=== PATIENT | female | born 1990 | race Caucasian/White ===

== ENCOUNTER → 2020-12-04 12:08 | Outpatient (BNVA) | payer MEDICAID, SELFPAY | PROVIDERS: PCP Family Medicine; Visit Provider Surgery | DX: Z11.59 Encounter for screening for other viral diseases (principal); K52.9 Noninfective gastroenteritis and colitis, unspecified | CPT/HCPCS: 87635 ==

== ENCOUNTER 2020-12-08 07:41 | Outpatient (CLI) | payer MEDICAID, SELFPAY ==
--- NOTE | 2020-12-08 08:00 | US_ITS ---
WS: [id number] RIGHT UPPER QUADRANT ULTRASOUND HISTORY: R10.9 - Unspecified abdominal pain COMPARISON: 02/12/2017 Liver: 15.9 cm in length. Normal size liver. No bile duct dilatation or mass. Gallbladder: Normally distended gallbladder with no stones or wall thickening. CBD: 0.3 cm Pancreas: Normal size and echogenicity. Right kidney: 11.9 cm in length. Normal size and echogenicity. No hydronephrosis or mass. Aorta and IVC: Unremarkable abdominal aorta and IVC. No ascites. US/US gall bladder 51540 IMPRESSION: Normal RIGHT upper quadrant ultrasound.
== END 2020-12-08 07:42 | disposition home or self-care (01) ==
LOC: US 07:47
PROVIDERS: PCP Family Medicine; Visit Provider Surgery
DX: R10.9 Unspecified abdominal pain (principal)
CPT/HCPCS: 76705

== ENCOUNTER 2020-12-09 06:29 | Day surgery (SDC) | payer MEDICAID, SELFPAY ==
[2020-12-07 14:09] VITALS: BMI 20.7
[2020-12-09 06:43] VITALS: BP 109/78; PULSE 95; RESP 18; TEMP 36.8; O2SAT 98
[2020-12-09 06:46] LABS: OR HCG Qualitative Urine Negative (Negative)
[2020-12-09] MEDS: sodium chloride 0.9% 1,000 ML 30 ML IV (06:47)
--- NOTE | 2020-12-09 06:51 | W.PM.OPSUD ---
Surgery/Procedure H&P Update DATE OF PROCEDURE: December 09, 2020 DATE H&P PERFORMED: 11/23/20 H&P UPDATE INFORMATION: I have reviewed H&P completed within last 30 days, I have examined patient prior to procedure and No changes to prior documentation PREOP DIAGNOSIS: Chronic diarrhea PRIMARY INDICATION FOR PROCEDURE: The same PLANNED PROCEDURE: Operation Date: 12/09/20 07:30 Proposed Procedures p Colonoscopy 79617 K52.9(Not Applicable) - Joce Doherty MD
--- NOTE | 2020-12-09 07:08 | ANES.PREANE2 ---
Pre-Anesthetic Assessment Pre-Anesthetic Assessment: Height/Weight: Height 1.55 m Weight 49.895 kg Temp Pulse Resp BP Pulse Ox 98.2 F 95 18 109/78 98 12/09/20 06:43 12/09/20 06:43 12/09/20 06:43 12/09/20 06:43 12/09/20 06:43 Preop Diagnosis: Chronic diarrhea Proposed Procedure: Operation Date: 12/09/20 07:30 Proposed Procedures p Colonoscopy 56510 K52.9(Not Applicable) - Joce Doherty MD Familial anesthetic complications: None Was Beta Janie taken within 24 hours: N/A Last intake: Intake NPO > 8 hrs Last Liquid Date 12/08/20 Last Solid Date 12/07/20 Social: Social History: Tobacco Exam: Pre-Anes Outpt Exam: alert, oriented x 3, clear to auscultation bilaterally and regular rate & rhythm Airway: MP: 2 Dentition: Chipped (front top) Anesthetic Plan: ASA status: 1 Anesthesia: MAC Risk of > 500 ml blood loss (7ml/kg in children): No Meds/Allergies Current Medications: Current Medications Generic Name Dose Route Start Last Admin Trade Name Freq PRN Reason Stop Dose Admin Sodium Chloride 1,000 mls @ 30 ml s/hr 12/09/20 06:45 12/09/20 06:47 Sodium Chloride 0.9% IV 30 mls/hr .Q24H VIDYA Administration PFSH Anesthesia PFSH: Medical History Chronic diarrhea Family History Other Diabetes Hypertension Denies family history of Anesthesia complication Bleeding disorder Social History Smoking and tobacco status: current every day smoker cigarettes Second hand smoke exposure: No Alcohol intake: never Adopted: No Caregiver/support person: Yes Lives independently: Yes Household members: spouse and family Marital status: Pets and animals: No History of recent travel: No Sexually active: Yes Current gender identity: Female Angle/Mandaen: Confucianism Data Anesthesia Other Labs: Laboratory Results - last 48 hr 12/09/20 06:37 Urine HCG, Qual Negative Cardiac Studies: No Data to Display
[2020-12-09 08:01] VITALS: BP 83/54; PULSE 79; RESP 16; TEMP 36.1; O2SAT 97
[2020-12-09 08:10] VITALS: BP 89/54; PULSE 75; RESP 18; O2SAT 100
--- NOTE | 2020-12-09 08:17 | ANE.PACU2 ---
Inpatient post-anesthesia follow up: Airway intact: Yes Vital signs: Temperature 97 F Pulse Rate 75 Respiratory Rate 18 Blood Pressure 89/54 Pulse Oximetry 100 Oxygen Delivery Me thod Room Air Oxygen Flow Rate 2 Fraction of Inspir ed Oxygen Hydration adequate: Yes Nausea and vomiting: No Pain level: 1 Mental status: Baseline
[2020-12-09 08:22] VITALS: BP 98/61; PULSE 66; RESP 18; O2SAT 100
--- NOTE | 2020-12-09 18:32 | ANE.PACU2 ---
Inpatient post-anesthesia follow up: Airway intact: Yes Vital signs: Temperature 97 F Pulse Rate 66 Respiratory Rate 18 Blood Pressure 98/61 Pulse Oximetry 100 Oxygen Delivery Me thod Room Air Oxygen Flow Rate 2 Fraction of Inspir ed Oxygen Hydration adequate: Yes Nausea and vomiting: No Pain level: 1 Mental status: Baseline
== END 2020-12-09 08:26 | disposition home or self-care (01) ==
PROVIDERS: Anesthesiology; PCP Family Medicine; Visit Provider Surgery
PROC: 0DJD8ZZ Inspection of Lower Intestinal Tract, Via Natural or Artificial Opening Endoscopic (ICD-10-PCS; CPT 45378; principal; 2020-12-09 07:30)
DX: K52.9 Noninfective gastroenteritis and colitis, unspecified (principal); F17.210 Nicotine dependence, cigarettes, uncomplicated
CPT/HCPCS: 12345; 45378; 81025; 82274; 83630; 84703; 87493; 87506; J2704; J7030

== ENCOUNTER 2021-01-09 16:36 | Emergency (ER) | payer MEDICAID, SELFPAY ==
[2021-01-09 16:38] VITALS: BP 127/87; PULSE 100; RESP 16; TEMP 37.2; O2SAT 97; BMI 20.5
[2021-01-09 16:43] VITALS: BP 127/87; PULSE 100; RESP 16; TEMP 37.2; O2SAT 97
--- NOTE | 2021-01-09 17:13 | W.ED.GENADLT ---
HPI - General Adult General: Chief complaint: Headache Stated complaint: Sharp pain Rt side of head/jaw Time Seen by Provider: 01/09/21 16:54 Source: patient Mode of arrival: ambulatory Limitations: no limitations History of Present Illness: HPI narrative: Patient is a 30-year-old female who presents to ED today with a complaint of pain to the right side of her face. She states pain is been present over the past few days. Pain seems to be worse with eating/chewing. She is not having any ear pain or dental pain. She has not noticed any redness or swelling. She feels this is most likely her TMJ joint. She has never had problems with this previously. She states pain is fairly constant but worsens with movement. Onset (ago): day(s) Location: face Severity: mild Pain Consistency: constant Exacerbating factors: other (chewing/eating) Associated symptoms: Reports no associated symptoms; Deny chest pain, confusion, dyspnea, headache(s), nausea, rash or vomiting Review of Systems Const: Denies: fever(s), chills, body aches or fatigue Eyes: Denies: change in vision, blurry vision or photophobia ENMT: Denies: enlarged tonsils, odynophagia, dental pain, ear or mastoid pain or nasal congestion Card: Denies: chest pain Resp: Denies: dyspnea GI: Denies: nausea or vomiting Musc: Denies: neck pain or back pain Skin/Breast: Denies: rash Neuro: Denies: headache(s), numbness in extremities, weakness in extremities, sensory changes, dizziness, vertigo or confusion PFS ED PFSH: Medical History Chronic diarrhea Family History Other Diabetes Hypertension Denies family history of Anesthesia complication Bleeding disorder Social History Smoking and tobacco status: current every day smoker cigarettes Second hand smoke exposure: No Alcohol intake: never Adopted: No Caregiver/support person: Yes Lives independently: Yes Household members: spouse and family Marital status: Pets and animals: No History of recent travel: No Sexually active: Yes Current gender identity: Female Angle/Quaker: Caodaism Female Reproductive History: Date of last menstrual period: 12/21/20 Physical Exam Const: COMMON NORMALS: no acute distress, average body habitus, patient oriented x3, no limitations, healthy appearing, alert and well nourished HENMT: COMMON NORMALS: normocephalic, atraumatic, hearing grossly normal bilaterally, external ears normal, EAC's normal, TM's normal bilaterally, Normal external nose present, Normal nasal mucous membranes and turbinates present, moist oral mucous membranes and oropharynx normal HEAD & SCALP: normal to inspection, normocephalic and atraumatic FACE & SINUS: sinuses nontender NOSE: Normal external nose present, Normal nasal mucous membranes and turbinates present and Other nasal findings present (TTP R TMJ; mild clicking noted with opening/closing mandible ) EXTERNAL EAR: Yes external ears normal EXTERNAL AUDITORY CANAL: EAC's normal TYMPANIC MEMBRANE: TM's normal bilaterally MOUTH: Normal oral and palatal mucosa present, lip normal and tongue normal TEETH & GINGIVA: Yes poor dentition THROAT: posterior oropharynx normal, tonsils normal and uvula midline Neck/C-Spine: COMMON NORMALS: full ROM, no lymphadenopathy and no meningeal signs Neuro: COMMON NORMALS: patient oriented x3 SENSORIUM/ORIENTATION: Yes alert MENINGEAL SIGNS: Yes no meningeal signs Skin: COMMON NORMALS: no rashes or lesions noted GENERAL SKIN EXAM: no rashes or lesions noted Course Vital Signs: Vital signs: Vital Signs Temperature 99.0 F 01/09/21 17:24 Pulse Rate 94 01/09/21 17:24 Respiratory Rate 16 01/09/21 17:24 Blood Pressure 122/82 01/09/21 17:24 Pulse Oximetry 100 01/09/21 17:24 MDM - General Adult MDM Narrative: Medical decision making narrative: Discussed conservative management and avoidance of triggers. Will place on NSAIDS. Recommend followup with PCP in 2 weeks. Discharge Plan Discharge Patient Disposition: Home Clinical Impression: Temporomandibular joint pain Qualifiers: Laterality: right Qualified Code(s): M26.621 - Arthralgia of right temporomandibular joint Condition: Stable Prescriptions: New diclofenac sodium 50 mg tablet,delayed release (DR/EC) 50 mg PO Q12H PRN (Reason: pain) Qty: 20 RF: 0 No Action ferrous sulfate 324 mg (65 mg iron) tablet,delayed release (DR/EC) 324 mg PO BID RF: 0 Chantix 1 mg tablet 1 mg PO BID RF: 0 acetaminophen 500 mg Tablet 1,000 mg PO Q6H PRN (Reason: Pain) RF: 0 Discharge Orders: Discharge ED (Routine); Ordered 01/09/21 Ordered By: Eva Lux Referrals: Dash Velazquez MD [Primary Care Provider] - Patient Instructions: Opioid Safety Activity Restrictions/Additional Instructions: [facility] is committed to fighting the nationwide opiate epidemic. We are providing ALL patients with information regarding opiate safety. If you received opiate pain medication during your stay or if you received a prescription for opiate pain medication-please review this handout. If not, you may disregard. Thank you. Coding Level of Care Code ED Pvc Loader for David Gu
[2021-01-09 17:24] VITALS: BP 122/82; PULSE 94; RESP 16; TEMP 37.2; O2SAT 100
== END 2021-01-09 17:27 | disposition home or self-care (01) ==
PROVIDERS: Emergency Provider Physician Assistant; PCP Family Medicine
DX: M26.621 Arthralgia of right temporomandibular joint (principal); F17.210 Nicotine dependence, cigarettes, uncomplicated
CPT/HCPCS: 99282

== ENCOUNTER 2021-01-15 06:46 | Outpatient (CLI) | payer MEDICAID, SELFPAY ==
--- NOTE | 2021-01-15 07:03 | NM_ITS ---
WS: [id number] NUCLEAR MEDICINE HIDA SCAN CLINICAL INFORMATION: ABD PAIN TECHNIQUE: Following intravenous administration of mCi of technetium 99m mebrofenin, images of the ab domen were obtained over the course of 60 minutes. Next, gallbladder ejection fraction was determined by obtaining preprandial and one-hour postprandial images of the gallbladder following oral ingestio n of Ensure. COMPARISON: Ultrasound December 08, 2020 FINDINGS: Normal uptake at 5 minutes. Hepatomegaly. Normal hepatic excretion. Gallbladder is visualized by 15 m inutes. No evidence of acute cholecystitis. Normal common bile duct and small bowel activity. No evid ence of choledocholithiasis. Gallbladder ejection fraction 85% within normal limits. No evidence of chronic cholecystitis. NM/NM hepatobiliary w phar* [id number] IMPRESSION: 1. No evidence of acute or chronic cholecystitis. 2. Gallbladder ejection fraction 85% within normal limits. 3. Hepatomegaly.
== END 2021-01-15 06:47 | disposition home or self-care (01) ==
LOC: RAD 06:47
PROVIDERS: PCP Family Medicine; Visit Provider Surgery
DX: R10.9 Unspecified abdominal pain (principal); R16.0 Hepatomegaly, not elsewhere classified
CPT/HCPCS: 78227; A9537

== ENCOUNTER → 2021-02-11 12:27 | Outpatient (BNVA) | payer MEDICAID, SELFPAY | PROVIDERS: PCP Family Medicine; Visit Provider Surgery | DX: K82.8 Other specified diseases of gallbladder (principal) | CPT/HCPCS: 87635 ==

== ENCOUNTER 2021-02-16 06:53 | Day surgery (SDC) | payer MEDICAID, SELFPAY ==
[2021-02-15 09:19] VITALS: BMI 20.7
[2021-02-16] VITALS (11 sets, daily range): BP systolic 90–118; BP diastolic 55–77; PULSE 60–99; RESP 12–20; TEMP 36.4–36.5; O2SAT 95–100
[2021-02-16] MEDS: sodium chloride 0.9% 1,000 ML 30 ML IV (07:00)
--- NOTE | 2021-02-16 07:02 | W.PM.OPSUD ---
Surgery/Procedure H&P Update DATE OF PROCEDURE: February 16, 2021 DATE H&P PERFORMED: 01/27/21 H&P UPDATE INFORMATION: I have reviewed H&P completed within last 30 days, I have examined patient prior to procedure, No changes to prior documentation and Changes to prior documentation as noted here CHANGES TO PREVIOUS DOCUMENTATION: LFTs WNL PREOP DIAGNOSIS: Recurrent biliary colics PRIMARY INDICATION FOR PROCEDURE: THE SAME PLANNED PROCEDURE: Operation Date: 02/16/21 08:55 Proposed Procedures p Laparoscopic Cholecystectomy 00350 K82.8(Not Applicable) - Joce Doherty MD
--- NOTE | 2021-02-16 07:16 | P.ANESASSM_ITS ---
Pre-Anesthetic Assessment Pre-Anesthetic Assessment: Height/Weight: Height 1.55 m Weight 49.895 kg Temp Pulse Resp BP Pulse Ox 97.6 F 99 18 118/77 100 02/16/21 07:13 02/16/21 07:13 02/16/21 07:13 02/16/21 07:13 02/16/21 07:13 Preop Diagnosis: Recurrent biliary colics Proposed Procedure: Operation Date: 02/16/21 08:55 Proposed Procedures p Laparoscopic Cholecystectomy 66134 K82.8(Not Applicable) - Joce Doherty MD Familial anesthetic complications: None Was Beta Janie taken within 24 hours: N/A Was Clonidine taken within 24 hours: N/A Last intake: Intake Last Liquid Date 02/15/21 Last Liquid Time 20:30 Last Solid Date 02/15/21 Last Solid Time 19:00 Social: Social History: No alcohol and No tobacco Exam: Pre-Anes Outpt Exam: alert, oriented x 3, clear to auscultation bilaterally and regular rate & rhythm Airway: Cervical ROM: WNL MP: 2 Dentition: Chipped (front) Anesthetic Plan: ASA status: 1 Anesthesia: General Risk of > 500 ml blood loss (7ml/kg in children): No PFSH Anesthesia PFSH: Medical History Chronic diarrhea Family History Other Diabetes Hypertension Denies family history of Anesthesia complication Bleeding disorder Social History Smoking and tobacco status: current every day smoker cigarettes Second hand smoke exposure: No Alcohol intake: never Adopted: No Caregiver/support person: Yes Lives independently: Yes Household members: spouse and family Marital status: Pets and animals: No History of recent travel: No Sexually active: Yes Current gender identity: Female Angle/Confucianist: Confucianist Female Reproductive History: Date of last menstrual period: 12/21/20 Data Anesthesia Cardiac Studies: No Data to Display
[2021-02-16 07:31] LABS: Alanine Aminotransferase 18 U/L (0-33); Albumin Level 4.9 g/dL (3.5-5.2); Alkaline Phosphatase 49 IU/L (35-105); Globulin 3.1 g/dL (1.3-4.6); Total Bilirubin 0.3 mg/dL (0.15-1.2)
[2021-02-16 07:37] LABS: Aspartate Amino Transferase 31 U/L (0-32)
[2021-02-16] MEDS: clindamycin 600 MG/50 ML PREMIX 100 MG IV (07:42)
--- NOTE | 2021-02-16 08:16 | SUR.OPER ---
called family-went to voicemail-didn't leave message
[2021-02-16 08:28] LABS: OR HCG Qualitative Urine Negative (Negative)
--- NOTE | 2021-02-16 08:53 | SUR.OPER ---
called family with update, all questions answered
[2021-02-16] MEDS: lidocaine 2% INJ 20 mL INJECTION (08:59)
--- NOTE | 2021-02-16 09:04 | P.OP_ITS ---
Operative Report Date of procedure: February 16, 2021 Pre-op Diagnosis: Recurrent biliary colics Post-op Findings: Chronic cholecystitis Procedure Done: Laparoscopic cholecystectomy and excision of lymph node of Lundd Specimens removed/disposition: Lymph node of Lundd Gallbladder and contents Surgeon: Joce Doherty Direct Chill Caster: Surgical ayala Rutledge Circulating nurse Sravani Anesthesia: General (GET[employer] sustainability executive director Smart) Estimated blood loss (mL): 10 IV fluids (mL): 500 Condition: stable Disposition: same day Brief History: Recurrent biliary colic.Full H&P and informed consent per chart. Procedure: Patient was identified in the holding area and taken back to the operative suite, placed in supine position intubated by anesthesia . Time-out was done verifying the patient's name/date of /planned procedure and destination after the procedure, all were in agreement.SCDs confirmed to be functioning, preoperative antibiotics administered per protocol,and beta king protocol was confirmed. Patient was appropriately secured to the table, footboard was applied to the OR table, before prep and drape anesthesia was asked to tilt the table back and forth to make sure that the patient is appropriately secured and she was. Prep and drape of the abdomen was done under the usual sterile technique, followed by that supraumbilical skin incision,skin incision was done by a 15 blade knife, and stay sutures were applied to the fascia and Carroll trocar technique was used to enter the abdominal without injuring any abdominal viscera, started by low flow gas insufflation followed by a high flow, started with a 10 mm laparoscope and under direct vision there was no evidence of any injuries, the scope then switched to a 30? ,10 millimeter scope and under direct visualization 5 millimeter trocar was inserted in the epigastric region followed by two 5 mm trocars were inserted in the right upper quadrant that was done after injection of local lidocaine 2% at all incision sites. Gallbladder showed chronic cholecystitis with adhesions,liver ptosis is noticed. Patient was then positioned in the head up and tilted to the left Ratcheted forceps were introduced into the lateral most 5mm port and was applied unto the fundus of the gallbladder cephalad and using Bullet forceps the infundibulum of the gallbladder was retracted laterally. Patient was noticed to have a lot of omental adhesions that I had to take down under direct visualization using heat cauterization, there was some oozing and I elected to place an Endoloop Vicryl for appropriate hemostasis. Using [place] forceps then L-hook cautery to dissect the peritoneum overlying the Calot's triangle which was then opened medially and laterally until the cystic duct and the cystic artery were skeletonized.Dissection was carried along the body of the gallbladder and after ensuring critical view of safety was identfied. Cystic duct and cystic artery where seen connected to the gallbladder. Clips were applied on the cystic duct towards the common bile duct 1 towards the gallbladder then divided is in sharp scissors, 2 clips were then applied onto the cystic artery and 1 towards the gallbladder and divided by sharp scissors. Dissection was then carried along of the gallbladder from the gallbladder fossa using cautery as well as sharp dissection with heat energy. The gallbladder then was dissected out from the gallbladder fossa totally , cholecystectomy was then achieved and was placed in an Endo Catch bag and then retrieved from the Carroll trocar site under direct visualization using a 5 mm 30? scope through the epigastric trocar, specimen was then passed to the circulating nurse to go for permanent pathology,irrigation and hemostasis was done to the gallbladder fossa after hemostasis was secured, final survey laparoscopy was done that showed no injuries.Suction irrigation was obtained. The supraumbilical fascial defect was then closed using interrupted PDS and Vicryl sutures using a fascial closure device ;Tremaine Elizabeth under direct visualization Gas was allowed to deflate,Trocars were then taken out under direct vision there was no evidence of bleeding Specimen was passed to the circulating nurse for permanent pathology. No drains were placed and the supraumbilical incision as well as all trocar sites were closed by 3-0 Vicryl followed by 4-0 Monocryl to approximate the skin edges of the supraumbilical incision, dressing was applied in the form of surgical glue and the patient patient got extubated and was taken to recovery area in a stable condition. Count of sponges, needles and instruments were completed at the end of the procedure I was present for the whole entire procedure.
[2021-02-16] MEDS: midazolam 1 mg/mL INJ 2 mL IVP (09:15)
[2021-02-16] MEDS: ondansetron 2 mg/ML SDV 2 mL 4 MG IVP (10:50)
[2021-02-16] MEDS: HYDROcodone-acetaminophen 5-325 mg Tablet 1 TAB PO (11:52)
--- NOTE | 2021-02-16 19:03 | ANE.PACU2 ---
Inpatient post-anesthesia follow up: Airway intact: Yes Vital signs: Temperature 97.7 F Pulse Rate 70 Respiratory Rate 16 Blood Pressure 92/57 Pulse Oximetry 95 Oxygen Delivery Me thod Room Air Oxygen Flow Rate 6 Fraction of Inspir ed Oxygen Hydration adequate: Yes Nausea and vomiting: No Pain level: 2 Mental status: Baseline
== END 2021-02-16 11:50 | disposition home or self-care (01) ==
PROVIDERS: Anesthesiology; PCP Family Medicine; Visit Provider Surgery
PROC: 0FT44ZZ Resection of Gallbladder, Percutaneous Endoscopic Approach (ICD-10-PCS; CPT 47562; principal; 2021-02-16 08:45)
DX: K80.10 Calculus of gallbladder with chronic cholecystitis without obstruction (principal); F17.210 Nicotine dependence, cigarettes, uncomplicated
CPT/HCPCS: 47562; 80076; 81025; 84703; 88304; 88305; 96374; J1100; J2250; J2370; J2405; J2704; J3010; J3490; J7030

== ENCOUNTER 2021-04-26 12:06 | Emergency (ER) | payer MEDICAID, SELFPAY ==
[2021-04-26 12:16] VITALS: BP 106/71; PULSE 84; RESP 16; TEMP 36.5; O2SAT 97; BMI 18.8
[2021-04-26] MEDS: sodium chloride 0.9% 1,000 ML 999 ML IV (12:50)
[2021-04-26] MEDS: ondansetron 2 mg/ML SDV 2 mL 4 MG IVP (12:50)
--- NOTE | 2021-04-26 12:51 | ED_ITS ---
HPI - Abdominal Pain General: Chief Complaint: Abdominal Pain Stated Complaint: severe lower abd pain Time Seen by Provider: 04/26/21 12:37 History of Present Illness: HPI narrative: 30-year-old female was playing with her son at home last night and her they were essentially wrestling in the bed her son jumped up and landed on her abdomen, and periumbilical right upper quadrant she recently had a cholecystectomy claiming more severe pain this morning no vomiting no fever sweats chills dysuria urgency or frequency. MD elicited complaint: abdominal pain Onset (ago): hour(s) Pain Consistency: intermittent Location: Periumbilical and RUQ Quality: cramping Radiation: none Migration to: no migration Exacerbating factors: nothing Relieving factors: nothing Associated Symptoms: Reports poor appetite; Denies anorexia, belching, bloating, change in bowel habits, change in stool character, chills, coffee ground emesis, constipation, GI cramping, diarrhea, dyspepsia, dysuria, excessive flatus, fever(s), heartburn, hematochezia, hematuria, hematemesis, fecal incontinence, loose stools, melena, nausea, syncope and vomiting Related Data: Date of Last Menstrual Period: 04/21/21 Review of Systems Const: Denies: fever(s) or chills ENMT: Denies: throat pain, ear or mastoid pain, nasal discharge or nasal congestion Card: Denies: syncope Resp: Denies: dyspnea, productive cough or non-productive cough GI: Denies: nausea, vomiting, hematemesis, coffee ground emesis, heartburn, diarrhea, constipation, bloating, GI cramping, belching, excessive flatus, fecal incontinence, change in bowel habits, change in stool character, hematochezia or melena : Denies: dysuria or hematuria Skin/Breast: Denies: rash or pruritus PFSH ED PFSH: Medical History Biliary dyskinesia Chronic diarrhea Family History Other Diabetes Hypertension Denies family history of Anesthesia complication Bleeding disorder Social History Smoking and tobacco status: current every day smoker cigarettes Second hand smoke exposure: No Alcohol intake: never Adopted: No Caregiver/support person: Yes Lives independently: Yes Household members: spouse and family Marital status: Pets and animals: No History of recent travel: No Sexually active: Yes Current gender identity: Female Angle/Jehovah'S Witness: Faith Female Reproductive History: Date of last menstrual period: 04/21/21 Physical Exam Const: COMMON NORMALS: no acute distress GENERAL APPEARANCE: cooperative and comfortable ORIENTATION/CONSCIOUSNESS: Yes awake, Yes oriented to person, Yes oriented to place and Yes oriented to time HENMT: COMMON NORMALS: normocephalic, atraumatic and hearing grossly normal bilaterally HEAD & SCALP: normocephalic and atraumatic Neck/C-Spine: COMMON NORMALS: no JVD Resp: COMMON NORMALS: normal respiratory effort, No retractions, No use of accessory muscles and clear to auscultation bilaterally AUSCULTATION: clear to auscultation bilaterally Cardio: COMMON NORMALS: no JVD, regular rate, regular rhythm and No murmurs present (Cardio) RATE: regular rate RHYTHM: regular rhythm GI: COMMON NORMALS: No hepatosplenomegaly present AUSCULTATION: Yes normoactive bowel sounds PALPATION: Yes Tenderness to palpation present (GI) (Periumbilical no guarding or rebound), No Guarding due to palpation present (GI) and Yes No hepatosplenomegaly present Extremity: COMMON NORMALS: normal to inspection, capillary refill normal, no clubbing, cyanosis or edema, no calf tenderness and no pedal edema Neuro: SENSORIUM/ORIENTATION: Yes oriented to person, Yes oriented to place and Yes oriented to time Skin: COMMON NORMALS: no rashes or lesions noted GENERAL SKIN EXAM: no rashes or lesions noted Course Vital Signs: Vital signs: Vital Signs Temperature 97.7 F 04/26/21 12:16 Pulse Rate 95 04/26/21 13:09 Respiratory Rate 18 04/26/21 13:09 Blood Pressure 132/76 04/26/21 13:09 Pulse Oximetry 98 04/26/21 13:09 MDM - Abdominal Pain MDM Narrative: Medical decision making narrative: CT negative. Physical exam no evidence of acute abdomen. Reviewed with patient discharge home follow-up as needed Lab Data: Labs: Lab Results 04/26/21 04/26/21 04/26/21 Range/Units 12:50 12:50 12:50 WBC 6.7 (4.0-10.0) 10^3/ uL RBC 5.74 H (4.1-5.3) 10^6/u L Hgb 10.8 L (11.5-15.3) g/dL Hct 38.8 (37.0-47.0) % MCV 67.6 L (81-99) fL MCH 18.8 L (28.0-34.0) pg MCHC 27.8 L (30.0-36.0) g/dL RDW 20.5 H (12.1-15.1) % Plt Count 440 H (130-400) 10^3/c mm MPV 9.8 (7.4-10.4) fL Neut % (Auto) 55.8 % Lymph % (Auto) 35.9 % [place] % (Auto) 6.6 % Eos % (Auto) 0.7 % Baso % (Auto) 0.9 % Neut # (Auto) 3.72 (1.8-7.7) 10^3/u L Lymph # (Auto) 2.4 (0.8-4.8) 10^3/u L [place] # (Auto) 0.4 (0.2-0.9) 10^3/u L Eos # (Auto) 0.1 (0.0-0.8) 10^3/u L Baso # (Auto) 0.1 (0.0-0.1) 10^3/u L Nucleated RBC % (a uto) 0 % Nucleated RBCs # 0.0 /100WBC Sodium 136 (136-145) mmol/L Potassium 4.2 (3.5-5.1) mmol/L Chloride 99 (98-107) mmol/L Carbon Dioxide 21 L (22-29) mmol/L Anion Gap 20.2 H (5-19) BUN 7 (6-20) mg/dL Creatinine 0.4 L (0.5-0.9) mg/dL GFR Calculation 185.0 H (90-130) mL/min Glucose 79 (65-115) mg/dL Calculated Osmolal ity 279 L (285-295) mOsm/k g Calcium 9.2 (8.5-10.5) mg/dL Total Bilirubin 0.4 (0.15-1.2) mg/dL AST 28 (0-32) U/L ALT 24 (0-33) U/L Alkaline Phosphata se 68 (35-105) IU/L Total Protein 9.1 H (6.6-8.7) g/dL Albumin 5.8 H (3.5-5.2) g/dL Globulin 3.3 (1.3-4.6) g/dL Lipase 26 (13-60) U/L HCG, Qual Negative (Negative) Urine Color (Yellow) Urine Appearance (CLEAR) Urine pH (5-7) Ur Specific Gravit y (1.005-1.030) Urine Protein (Negative) Urine Glucose (UA) (Normal) Urine Ketones (Negative) Urine Blood (Negative) Urine Nitrate (Negative) Urine Bilirubin (Negative) Urine Urobilinogen (Negative) mg/dL Ur Leukocyte Linnea ase (Negative) 04/26/21 Range/Units 12:50 WBC (4.0-10.0) 10^3/ uL RBC (4.1-5.3) 10^6/u L Hgb (11.5-15.3) g/dL Hct (37.0-47.0) % MCV (81-99) fL MCH (28.0-34.0) pg MCHC (30.0-36.0) g/dL RDW (12.1-15.1) % Plt Count (130-400) 10^3/c mm MPV (7.4-10.4) fL Neut % (Auto) % Lymph % (Auto) % [place] % (Auto) % Eos % (Auto) % Baso % (Auto) % Neut # (Auto) (1.8-7.7) 10^3/u L Lymph # (Auto) (0.8-4.8) 10^3/u L [place] # (Auto) (0.2-0.9) 10^3/u L Eos # (Auto) (0.0-0.8) 10^3/u L Baso # (Auto) (0.0-0.1) 10^3/u L Nucleated RBC % (a uto) % Nucleated RBCs # /100WBC Sodium (136-145) mmol/L Potassium (3.5-5.1) mmol/L Chloride (98-107) mmol/L Carbon Dioxide (22-29) mmol/L Anion Gap (5-19) BUN (6-20) mg/dL Creatinine (0.5-0.9) mg/dL GFR Calculation (90-130) mL/min Glucose (65-115) mg/dL Calculated Osmolal ity (285-295) mOsm/k g Calcium (8.5-10.5) mg/dL Total Bilirubin (0.15-1.2) mg/dL AST (0-32) U/L ALT (0-33) U/L Alkaline Phosphata se (35-105) IU/L Total Protein (6.6-8.7) g/dL Albumin (3.5-5.2) g/dL Globulin (1.3-4.6) g/dL Lipase (13-60) U/L HCG, Qual (Negative) Urine Color Yellow (Yellow) Urine Appearance Clear (CLEAR) Urine pH 7 (5-7) Ur Specific Gravit y 1.010 (1.005-1.030) Urine Protein Neg (Negative) Urine Glucose (UA) Norm (Normal) Urine Ketones Negative (Negative) Urine Blood Neg (Negative) Urine Nitrate Negative (Negative) Urine Bilirubin Neg (Negative) Urine Urobilinogen Norm (Negative) mg/dL Ur Leukocyte Linnea ase Negative (Negative) Discharge Plan Discharge Patient Disposition: Home Clinical Impression: Abdominal wall pain Condition: Stable Prescriptions: No Action acetaminophen 500 mg Tablet 1,000 mg PO Q6H PRN (Reason: Pain) RF: 0 Adult Multivitamin Gummies 200 mcg Tablet,Chewable 1 tab PO DAILY RF: 0 Discharge Orders: Discharge ED (Routine); Ordered 04/26/21 Ordered By: Sergio Vivar Referrals: Dash Velazquez MD [Primary Care Provider] - Discharge Diet: Usual diet Discharge Activity: Increase activity as tolerated Patient Instructions: Opioid Safety Coding Level of Care Code ED Cafe Associate for David Gu
--- NOTE | 2021-04-26 12:55 | CT_ITS ---
WS: [id number] CT ABDOMEN AND PELVIS WITH CONTRAST HISTORY: abd pain TECHNIQUE: Imaging performed of the abdomen and pelvis with IV contrast. Single phase imaging of the abdomen. Coronal and sagittal reformats are submitted. All CT scans at [facility] use at least one of these dose optimization techniques: automated exposure control; mA and/or kV adjustment per patient size (includes targeted exams where dose is matched to clinical indication); or iterativ e reconstruction. IV CONTRAST: Omnipaque 300; 75 mL IV. Oral contrast: No DLP: 653.18 mGy.cm COMPARISON: 01/20/2014 Lower thorax: Benign granuloma RIGHT lower lobe. Heart is normal size. No hiatal hernia. Liver/biliary system: Normal size with no intrahepatic dilatation. Gallbladder: Status post cholecystectomy. Pancreas: Normal size pancreas and pancreatic duct. No adjacent inflammation. Spleen: Normal size with a few granulomata. Adrenal glands: Normal. Right kidney: Normal. Left kidney: Normal. Aorta: Normal. Lymphadenopathy: None. Free fluid: There is a small amount of free fluid in the cul-de-sac. GI tract: Moderate fecal retention and constipation. The appendix is visualized is normal. Abdominal wall: Unremarkable abdominal wall. No hernia. Pelvis: Anteverted uterus. Coarse calcifications in the anterior myometrium consistent with fibroids. Fluid distended endometrium at 14 mm. RIGHT ovarian cyst measures 2.7 cm. Bones: Unremarkable. CT/CT abdomen pelvis w con* [id number] IMPRESSION: 1. Prior cholecystectomy. 2. No free air or visceral organ injury identified. 3. Moderate constipation. 4. Small amount of physiologic free fluid in the cul-de-sac. 5. Fibroid uterus.
[2021-04-26] MEDS: iohexol 300 mg/mL 100 mL Btl IV (13:04)
[2021-04-26 13:05] LABS: Add Urine Microscopic? NO; Charge for UA Resulting for Rev
[2021-04-26 13:09] VITALS: BP 132/76; PULSE 95; RESP 18; O2SAT 98
[2021-04-26 13:10] LABS: Basophils # 0.1 10^3/uL (0.0-0.1); Basophils % 0.9 %; Eosinophils # 0.1 10^3/uL (0.0-0.8); Eosinophils % 0.7 %; Hematocrit 38.8 % (37.0-47.0); Hemoglobin 10.8 g/dL (11.5-15.3); Lymphocytes # 2.4 10^3/uL (0.8-4.8); Lymphocytes % 35.9 %; Mean Corpuscular HGB Conc 27.8 g/dL (30.0-36.0); Mean Corpuscular Hemoglobin 18.8 pg (28.0-34.0); Mean Corpuscular Volume 67.6 fL (81-99); Mean Platelet Volume 9.8 fL (7.4-10.4); Monocytes # 0.4 10^3/uL (0.2-0.9); Monocytes % 6.6 %; Neutrophils # 3.72 10^3/uL (1.8-7.7); Neutrophils % 55.8 %; Nucleated Red Blood Cells % 0 %; Platelet Count 440 10^3/cmm (130-400); Red Blood Count 5.74 10^6/uL (4.1-5.3); Red Cell Distribution Width 20.5 % (12.1-15.1); White Blood Count 6.7 10^3/uL (4.0-10.0)
[2021-04-26 13:18] LABS: Bilirubin Urine Neg (Negative); Blood Urine Neg (Negative); Glucose Urine UA Norm (Normal); Ketones Urine Negative (Negative); Leukocyte Esterase Urine Negative (Negative); Nitrate Urine Negative (Negative); Protein Urine Neg (Negative); Urine Appearance Clear (CLEAR); Urine Color Yellow (Yellow); Urobilinogen Urine Norm (Negative); pH Urine 7 (5-7)
[2021-04-26 13:26] LABS: HCG, Serum Qual Negative (Negative)
[2021-04-26 13:28] LABS: Alanine Aminotransferase 24 U/L (0-33); Albumin Level 5.8 g/dL (3.5-5.2); Alkaline Phosphatase 68 IU/L (35-105); Anion Gap 20.2 (5-19); Aspartate Amino Transferase 28 U/L (0-32); Blood Urea Nitrogen 7 mg/dL (6-20); Calcium 9.2 mg/dL (8.5-10.5); Carbon Dioxide 21 mmol/L (22-29); Chloride 99 mmol/L (98-107); Globulin 3.3 g/dL (1.3-4.6); Glucose 79 mg/dL (65-115); Lipase 26 U/L (13-60); Osmolality Calculated 279 mOsm/kg (285-295); Potassium 4.2 mmol/L (3.5-5.1); Sodium 136 mmol/L (136-145); Total Bilirubin 0.4 mg/dL (0.15-1.2); Total Protein 9.1 g/dL (6.6-8.7)
[2021-04-26 13:32] LABS: Creatinine Clr Calc Pharmacy 149.2502
[2021-04-26 13:40] VITALS: BP 132/76; PULSE 95; RESP 18; O2SAT 98
[2021-04-26 13:43] VITALS: BP 108/67; PULSE 68; RESP 17; TEMP 36.8
== END 2021-04-26 13:44 | disposition home or self-care (01) ==
PROVIDERS: Emergency Provider Family Medicine; PCP Family Medicine
DX: R10.9 Unspecified abdominal pain (principal); F17.210 Nicotine dependence, cigarettes, uncomplicated
CPT/HCPCS: 74177; 80053; 81003; 83690; 84703; 85025; 96361; 96374; 99283; J2405; J7030; Q9967

== ENCOUNTER → 2021-07-23 12:26 | Outpatient (BNVA) | payer MEDICAID, SELFPAY | PROVIDERS: PCP Family Medicine; Visit Provider Surgery | DX: Z20.822 Contact with and (suspected) exposure to COVID-19 (principal); Z12.11 Encounter for screening for malignant neoplasm of colon | CPT/HCPCS: 87635 ==

== ENCOUNTER 2021-07-28 07:29 | Day surgery (SDC) | payer MEDICAID, SELFPAY ==
[2021-07-21 15:50] VITALS: BMI 19.1
--- NOTE | 2021-07-28 07:41 | P.ANESASSM_ITS ---
Pre-Anesthetic Assessment Pre-Anesthetic Assessment: Height/Weight: Height 1.55 m Weight 45.813 kg Preop Diagnosis: Recurrent biliary colics Proposed Procedure: Operation Date: 07/28/21 08:45 Proposed Procedures p EGD 37682 R10.9(Not Applicable) - Joce Doherty MD Familial anesthetic complications: None Was Beta Janie taken within 24 hours: N/A Was Clonidine taken within 24 hours: N/A Last intake: > 8 hrs Social: Social History: Tobacco and No alcohol Exam: Pre-Anes Outpt Exam: alert, oriented x 3, clear to auscultation bilaterally and regular rate & rhythm Airway: MP: 2 Dentition: Chipped (front) Anesthetic Plan: ASA status: 1 Anesthesia: MAC Risk of > 500 ml blood loss (7ml/kg in children): No PFSH Anesthesia PFSH: Medical History Biliary dyskinesia Chronic diarrhea Family History Other Diabetes Hypertension Denies family history of Anesthesia complication Bleeding disorder Social History Smoking and tobacco status: current every day smoker cigarettes Second hand smoke exposure: No Alcohol intake: never Adopted: No Caregiver/support person: Yes Lives independently: Yes Household members: spouse and family Marital status: Pets and animals: No History of recent travel: No Sexually active: Yes Current gender identity: Female Angle/Bahai: Scientology Female Reproductive History: Date of last menstrual period: 04/21/21 Data Anesthesia Cardiac Studies: No Data to Display
[2021-07-28 08:01] VITALS: BP 104/72; PULSE 78; RESP 18; TEMP 36.4; O2SAT 100
[2021-07-28] MEDS: sodium chloride 0.9% 1,000 ML 30 ML IV (08:17)
[2021-07-28 08:23] LABS: OR HCG Qualitative Urine Negative (Negative)
--- NOTE | 2021-07-28 08:43 | P.HP_ITS ---
Same Day Surgery H&P Indication for Procedure/HPI DATE OF PROCEDURE: July 28, 2021 CHIEF COMPLAINT/INDICATIONFOR SURGICAL PROCEDURE: My jeyson love PREOP DIAGNOSIS: Abdominal pain PLANNED PROCEDRUE: Operation Date: 07/28/21 08:45 Proposed Procedures p EGD 18751 R10.9(Not Applicable) - Joce Doherty MD Patient comes today and she is well-known to me from previous clinical encounters with history of abdominal pain and diarrhea. Undergone a colonoscopy back in November 2020 that showed normal findings. Followed by laparoscopic cholecystectomy in January 2021 and pathology at that time showed chronic cholecystitis. Patient initially felt better yet over time she continues to demonstrate sharp abdominal pain to any kind of food associated with change in bowel habits slightly loose nonbloody. Also reports history of chronic anxiety. Patient is referred to me for further evaluation and potential intervention Interim history 07/28/2021 Patient comes today for diagnostic EGD ROS All systems have been reviewed negative except as per the above or per problem list Medications/Allergies* Home Medications Medication Instructions Recorded Confirmed Type acetaminophen 1,000 mg PO Q6H PRN 12/07/20 07/28/21 History multivit with min-folic acid 1 tab PO DAILY 04/26/21 07/28/21 History [Adult Multivitamin Gummies] Allergies/Adverse Reactions Allergy/AdvReac Type Severity Reaction Status Date / Time Penicillins Allergy ALGY-Rash Verified 07/28/21 08:46 Current Medications: Generic Name Dose Route Start Last Admin Trade Name Freq PRN Reason Stop Dose Admin Sodium Chloride 1,000 mls @ 30 mls/hr 07/28/21 08:00 07/28/21 08:17 Sodium Chloride 0.9% IV 07/29/21 07:59 30 mls/hr .Q24H VIDYA Administration Pertinent History/Comorbid Conditions* Medical History (Updated 06/11/21 @ 16:36 by Joce Doherty MD) Biliary dyskinesia Chronic diarrhea Family History (Updated 11/23/20 @ 09:23 by Betty Burk RN) Diabetes Hypertension Denies family history of Anesthesia complication Bleeding disorder Social History Smoking and tobacco status: current every day smoker cigarettes Second hand smoke exposure: No Alcohol intake: never Adopted: No Caregiver/support person: Yes Lives independently: Yes Household members: spouse and family Marital status: Pets and animals: No History of recent travel: No Sexually active: Yes Current gender identity: Female Angle/Nondenominational: Sabianism Pertinent Exam Findings alert, oriented x 3, clear to auscultation bilaterally, regular rate & rhythm and procedure specific exam findings (Abdominal examination nontender nondiste nded soft) Recommendations Surgery/Procedure today (EGD with possible biopsy) Other Plans: Plan of care; After thorough history and physical examination and reviewing the chart, plan to perform a diagnostic esophagogastroduodenoscopy with possible biopsy in the GI lab. I discussed with the patient in detail the risk,benefits,alternatives and indications.The risk of aspiration, bleeding, soft tissue injury, perforation of the stomach/esophagus and other potential concomitant complications were explained to the patient in details,aslo the potential need for Thoracic and or Abdominal surgery to repair any complications.The patient understood this well and did agree to proceed. Rationale was carefully and clearly discussed with the patient.Appropriate informed consent have been reviewed and signed All questions have been answered and all concerns have been addressed to patient's satisfaction. Coding Level of Care Code Acute Superintendent Power for David Gu
[2021-07-28 09:03] VITALS: BP 93/56; PULSE 68; RESP 14; TEMP 36.3; O2SAT 94
[2021-07-28 09:13] VITALS: BP 114/82; PULSE 77; RESP 18; TEMP 36.3; O2SAT 99
--- NOTE | 2021-07-28 13:56 | ANE.PACU2 ---
Inpatient post-anesthesia follow up: Airway intact: Yes Vital signs: Temperature 97.3 F Pulse Rate 77 Respiratory Rate 18 Blood Pressure 114/82 Pulse Oximetry 99 Oxygen Delivery Me thod Room Air Oxygen Flow Rate 4 Fraction of Inspir ed Oxygen Hydration adequate: Yes Nausea and vomiting: No Pain level: 2 Mental status: Baseline
[2021-07-29 13:41] LABS: H. Pylori / CLO Test Negative
== END 2021-07-28 09:35 | disposition home or self-care (01) ==
PROVIDERS: Anesthesiology; PCP Family Medicine; Visit Provider Surgery
PROC: 0DJ08ZZ Inspection of Upper Intestinal Tract, Via Natural or Artificial Opening Endoscopic (ICD-10-PCS; CPT 43235; principal; 2021-07-28 08:45)
DX: R10.9 Unspecified abdominal pain (principal); K29.70 Gastritis, unspecified, without bleeding; F17.210 Nicotine dependence, cigarettes, uncomplicated
CPT/HCPCS: 43239; 81025; 84703; 87077; 88305; 96360; J2704; J7030

== ENCOUNTER 2021-08-30 08:57 | Outpatient (CLI) | payer MEDICAID, SELFPAY ==
--- NOTE | 2021-08-30 09:15 | FL_ITS ---
WS: [id number] SMALL BOWEL EXAMINATION CLINICAL INFORMATION: R19.7 - Diarrhea, unspecified COMPARISON: None. FINDINGS: Cholecystectomy clips. Contrast material: 50/50 thin barium sulfate suspension. Transit time: 80 Minutes (normal = 30 - 240 minutes) Normal small bowel. No small bowel stricture, dilatation, or obstructing mass. Duodenum and jejunum a ppear normal. The ileum and terminal ileum appear normal. Normal ileocecal valve. FLUOROSCOPY TIME: 0.6 minutes FL/FL small bowel series* [id number] IMPRESSION: Normal small bowel study with normal transit time.
== END 2021-08-30 08:58 | disposition home or self-care (01) ==
PROVIDERS: PCP Family Medicine; Visit Provider Surgery
DX: R19.7 Diarrhea, unspecified (principal)
CPT/HCPCS: 74250

== ENCOUNTER 2022-03-13 04:44 | Observation (INO) | payer MEDICAID, SELFPAY ==
[2022-03-13] VITALS (23 sets, daily range): BP systolic 90–107; BP diastolic 52–71; PULSE 74–112; RESP 15–21; TEMP 36.7–37.6; O2SAT 95–100; BMI 18.5
--- NOTE | 2022-03-13 05:13 | W.ED.GENADLT ---
Documented by User: Gianfranco Richardson DO 03/13/22 18:23 HPI - General Adult General: Chief complaint: General Medical Stated complaint: hip pains down the legs Time Seen by Provider: 03/13/22 05:05 Source: patient History of Present Illness: 31-year-old female presenting with bilateral hip pain Onset (ago): hour(s) Location: lower extremity Severity: moderate Pain Consistency: constant Associated symptoms: Reports fevers/chills and nausea; Deny chest pain, cough, dyspnea, headache(s), rash, short of breath or vomiting Review of Systems Const: Reports: fever(s), chills and body aches (hips only) Card: Denies: chest pain Resp: Denies: dyspnea, productive cough or non-productive cough GI: Reports: nausea; Denies: abdominal pain or vomiting : Denies: flank pain, difficulty voiding or dysuria Skin/Breast: Denies: rash Neuro: Denies: headache(s) Psych: Reports: anxiety PFSH ED PFSH: Medical History Abdominal pain Biliary dyskinesia Chronic diarrhea Gastritis Family History Other Diabetes Hypertension Denies family history of Anesthesia complication Bleeding disorder Social History Smoking and tobacco status: current every day smoker cigarettes Second hand smoke exposure: No Alcohol intake: never Adopted: No Caregiver/support person: Yes Lives independently: Yes Household members: spouse and family Marital status: Pets and animals: No History of recent travel: No Sexually active: Yes Current gender identity: Female Angle/Zoroastrian: Mormonism Female Reproductive History: Date of last menstrual period: 04/21/21 Physical Exam Const: GENERAL APPEARANCE: cooperative and ill appearing (mildly) HENMT: COMMON NORMALS: normocephalic, atraumatic and Normal external nose present HEAD & SCALP: normocephalic and atraumatic FACE & SINUS: normal facial exam and face symmetric NOSE: Normal external nose present Eye: COMMON NORMALS: Equal, round and reactive pupils present and EOMs intact bilaterally PUPIL: Yes Equal, round and reactive pupils present Chest: COMMONS NORMALS: normal inspection of the chest Resp: COMMON NORMALS: normal respiratory effort, No use of accessory muscles and clear to auscultation bilaterally AUSCULTATION: clear to auscultation bilaterally Cardio: COMMON NORMALS: regular rhythm RATE: tachycardic RHYTHM: regular rhythm GI: COMMON NORMALS: Normal to inspection, nondistended, normoactive bowel sounds present, Soft to palpation and non-tender PALPATION: Yes Soft to palpation Back/Pelvis: OTHER: Examination of the hips bilaterally reveals diffuse tenderness. There is pain with internal and external rotation passively. Range of motion is normal. Neuro: JAD COMA SCALE: document GCS findings Jad coma scale eye opening: Spontaneous Jad coma scale verbal response: Orientated Jad coma scale motor response: Obey commands [place] coma scale total score: 15 Course Vital Signs: Vital signs: Vital Signs Temperature 99.7 F H 03/13/22 17:35 Pulse Rate 77 03/13/22 17:35 Respiratory Rate 18 03/13/22 17:35 Blood Pressure 96/59 03/13/22 17:35 Pulse Oximetry 100 03/13/22 17:35 [facility] - General Adult Medical Decision Making 31-year-old female presenting with right greater than left-sided anterior and posterior hip pain radiating down the leg. She ran a temperature at home as well. She notes that it was 101 at the time. She took Tylenol. Its 99.2 here. Her flu swabs are negative. X-ray of the pelvis is negative she does have some pain with range of motion. Laboratory is pending as well as urine. She will be checked out to Dr. Easley at shift change. Lab Data : 03/13/22 06:30 03/13/22 06:30 Radiology Impressions Pelvis X-Ray 03/13/22 05:25 IMPRESSION: No acute findings. Laboratory Results WBC 4.7 10^3/uL (4.0-10.0) 03/13/22 06:30 RBC 3.18 10^6/uL (4.1-5.3) L 03/13/22 06:30 Hgb 6.1 g/dL (11.5-15.3) L* 03/13/22 06:30 Hct 21.6 % (37.0-47.0) L 03/13/22 06:30 MCV 67.9 fl (81-99) L 03/13/22 06:30 MCH 19.2 pg (28.0-34.0) L 03/13/22 06:30 MCHC 28.2 g/dL (30.0-36.0) L 03/13/22 06:30 RDW 19.2 % (12.1-15.1) H 03/13/22 06:30 Plt Count 207 10^3/cmm (130-400) 03/13/22 06:30 MPV 10.0 fL (7.4-10.4) 03/13/22 06:30 Neut % (Auto) 88.0 % 03/13/22 06:30 Lymph % (Auto) 3.6 % 03/13/22 06:30 [place] % (Auto) 7.6 % 03/13/22 06:30 Eos % (Auto) 0.2 % 03/13/22 06:30 Baso % (Auto) 0.2 % 03/13/22 06:30 Neut # (Auto) 4.14 10^3/uL (1.8-7.7) 03/13/22 06:30 Lymph # (Auto) 0.2 10^3/uL (0.8-4.8) L 03/13/22 06:30 [place] # (Auto) 0.4 10^3/uL (0.2-0.9) 03/13/22 06:30 Eos # (Auto) 0.0 10^3/uL (0.0-0.8) 03/13/22 06:30 Baso # (Auto) 0.0 10^3/uL (0.0-0.1) 03/13/22 06:30 Nucleated RBC % (auto) 0 % 03/13/22 06:30 Nucleated RBCs # 0.0 /100WBC 03/13/22 06:30 Sodium 139 mmol/L (136-145) 03/13/22 06:30 Potassium 3.6 mmol/L (3.5-5.1) 03/13/22 06:30 Chloride 109 mmol/L (98-107) H 03/13/22 06:30 Carbon Dioxide 19 mmol/L (22-29) L 03/13/22 06:30 Anion Gap 14.6 (5-19) 03/13/22 06:30 BUN 7 mg/dL (6-20) 03/13/22 06:30 Creatinine 0.5 mg/dL (0.5-0.9) 03/13/22 06:30 GFR Calculation 142.1 mL/min (90-130) H 03/13/22 06:30 Glucose 92 mg/dL (65-115) 03/13/22 06:30 Calculated Osmolality 286 mOsm/kg (285-295) 03/13/22 06:30 Calcium 7.5 mg/dL (8.5-10.5) L 03/13/22 06:30 Iron 11 ug/dL (37-145) L 03/13/22 06:30 TIBC 396 mcg/dl 03/13/22 06:30 % Saturation 2.7 % (20-50) L 03/13/22 06:30 Unsat Iron Binding 385 ug/dL (112-347) H 03/13/22 06:30 Transferrin 338 mg/dL (200-360) 03/13/22 06:30 Ferritin 5 ng/mL (15-150) L 03/13/22 06:30 Total Bilirubin 0.2 mg/dL (0.15-1.2) 03/13/22 06:30 AST 22 U/L (0-32) 03/13/22 06:30 ALT 18 U/L (0-33) 03/13/22 06:30 Alkaline Phosphatase 40 IU/L (35-105) 03/13/22 06:30 Creatine Kinase 28 U/L (26-192) 03/13/22 06:30 C-Reactive Protein 3.1 mg/L (0.0-4.9) 03/13/22 06:30 Total Protein 6.1 g/dL (6.6-8.7) L 03/13/22 06:30 Albumin 4.2 g/dL (3.5-5.2) 03/13/22 06:30 Globulin 1.9 g/dL (1.3-4.6) 03/13/22 06:30 Vitamin B12 480 pg/mL (232-1245) 03/13/22 06:30 Folate 12.2 ng/mL (4.8-37.3) 03/13/22 06:30 TSH 0.56 uIU/mL (0.27-4.20) 03/13/22 06:30 HCG, Qual Negative (Negative) 03/13/22 06:30 Urine Color Yellow (Yellow) 03/13/22 06:28 Urine Appearance Clear (CLEAR) 03/13/22 06:28 Urine pH 5 (5-7) 03/13/22 06:28 Ur Specific [place] 1.020 (1.005-1.030) 03/13/22 06:28 Urine Protein Neg (Negative) 03/13/22 06:28 Urine Glucose (UA) Norm (Normal) 03/13/22 06:28 Urine Ketones Negative (Negative) 03/13/22 06:28 Urine Blood Neg (Negative) 03/13/22 06:28 Urine Nitrate Negative (Negative) 03/13/22 06:28 Urine Bilirubin Neg (Negative) 03/13/22 06:28 Urine Urobilinogen Norm mg/dL (Negative) 03/13/22 06:28 Ur Leukocyte Esterase Negative (Negative) 03/13/22 06:28 Influenza Type A Ag Negative (Negative) 03/13/22 05:35 Influenza Type B Ag Negative (Negative) 03/13/22 05:35 Blood Type A Positive 03/13/22 08:04 Rho(D) Type Positive 03/13/22 08:04 Antibody Screen Negative 03/13/22 08:04 Crossmatch See Detail 03/13/22 08:04 Discharge Plan Discharge Patient Disposition: Admitted As Inpatient Admit Provider: Chavez Schmid Clinical Impression: Anemia, Acute hip pain Condition: Stable Sign Out Sign Out Data: Patient Sign Out occurred on 03/13/22 at 06:45. Patient's care was discussed, and care was transferred from to Roger Easley DO. Coding Level of Care Code ED [employer] Certified Internetwork Expert for Chg Fwd Exam Comprehensive Documented by User: Roger Easley DO 03/13/22 08:25 HPI - General Adult General: Chief complaint: General Medical Stated complaint: hip pains down the legs Time Seen by Provider: 03/13/22 05:05 [facility] ED PFSH: Medical History Abdominal pain Biliary dyskinesia Chronic diarrhea Gastritis Family History Other Diabetes Hypertension Denies family history of Anesthesia complication Bleeding disorder Social History Smoking and tobacco status: current every day smoker cigarettes Second hand smoke exposure: No Alcohol intake: never Adopted: No Caregiver/support person: Yes Lives independently: Yes Household members: spouse and family Marital status: Pets and animals: No History of recent travel: No Sexually active: Yes Current gender identity: Female Angle/Zoroastrian: Mormonism Physical Exam Neuro: JAD COMA SCALE: document GCS findings [place] coma scale total score: 15 Course Vital Signs: Vital signs: Vital Signs Temperature 99.7 F H 03/13/22 17:35 Pulse Rate 77 03/13/22 17:35 Respiratory Rate 18 03/13/22 17:35 Blood Pressure 96/59 03/13/22 17:35 Pulse Oximetry 100 03/13/22 17:35 MDM - General Adult Medical Decision Making 31-year-old female presenting with right greater than left-sided anterior and posterior hip pain radiating down the leg. She ran a temperature at home as well. She notes that it was 101 at the time. She took Tylenol. Its 99.2 here. Her flu swabs are negative. X-ray of the pelvis is negative she does have some pain with range of motion. Laboratory is pending as well as urine. She will be checked out to Dr. Easley at shift change. 0825 patient is found to be anemic with a hemoglobin of 6.1. Patient to be admitted to Dr. Schmid for blood transfusion and further evaluation of her anemia and hip pain. Patient was transferred in stable condition. I discussed with Dr. cShmid who is in agreement with admission. Lab Data : 03/13/22 06:30 03/13/22 06:30 Radiology Impressions Pelvis X-Ray 03/13/22 05:25 IMPRESSION: No acute findings. Laboratory Results WBC 4.7 10^3/uL (4.0-10.0) 03/13/22 06:30 RBC 3.18 10^6/uL (4.1-5.3) L 03/13/22 06:30 Hgb 6.1 g/dL (11.5-15.3) L* 03/13/22 06:30 Hct 21.6 % (37.0-47.0) L 03/13/22 06:30 MCV 67.9 fl (81-99) L 03/13/22 06:30 MCH 19.2 pg (28.0-34.0) L 03/13/22 06:30 MCHC 28.2 g/dL (30.0-36.0) L 03/13/22 06:30 RDW 19.2 % (12.1-15.1) H 03/13/22 06:30 Plt Count 207 10^3/cmm (130-400) 03/13/22 06:30 MPV 10.0 fL (7.4-10.4) 03/13/22 06:30 Neut % (Auto) 88.0 % 03/13/22 06:30 Lymph % (Auto) 3.6 % 03/13/22 06:30 [place] % (Auto) 7.6 % 03/13/22 06:30 Eos % (Auto) 0.2 % 03/13/22 06:30 Baso % (Auto) 0.2 % 03/13/22 06:30 Neut # (Auto) 4.14 10^3/uL (1.8-7.7) 03/13/22 06:30 Lymph # (Auto) 0.2 10^3/uL (0.8-4.8) L 03/13/22 06:30 [place] # (Auto) 0.4 10^3/uL (0.2-0.9) 03/13/22 06:30 Eos # (Auto) 0.0 10^3/uL (0.0-0.8) 03/13/22 06:30 Baso # (Auto) 0.0 10^3/uL (0.0-0.1) 03/13/22 06:30 Nucleated RBC % (auto) 0 % 03/13/22 06:30 Nucleated RBCs # 0.0 /100WBC 03/13/22 06:30 Sodium 139 mmol/L (136-145) 03/13/22 06:30 Potassium 3.6 mmol/L (3.5-5.1) 03/13/22 06:30 Chloride 109 mmol/L (98-107) H 03/13/22 06:30 Carbon Dioxide 19 mmol/L (22-29) L 03/13/22 06:30 Anion Gap 14.6 (5-19) 03/13/22 06:30 BUN 7 mg/dL (6-20) 03/13/22 06:30 Creatinine 0.5 mg/dL (0.5-0.9) 03/13/22 06:30 GFR Calculation 142.1 mL/min (90-130) H 03/13/22 06:30 Glucose 92 mg/dL (65-115) 03/13/22 06:30 Calculated Osmolality 286 mOsm/kg (285-295) 03/13/22 06:30 Calcium 7.5 mg/dL (8.5-10.5) L 03/13/22 06:30 Iron 11 ug/dL (37-145) L 03/13/22 06:30 TIBC 396 mcg/dl 03/13/22 06:30 % Saturation 2.7 % (20-50) L 03/13/22 06:30 Unsat Iron Binding 385 ug/dL (112-347) H 03/13/22 06:30 Transferrin 338 mg/dL (200-360) 03/13/22 06:30 Ferritin 5 ng/mL (15-150) L 03/13/22 06:30 Total Bilirubin 0.2 mg/dL (0.15-1.2) 03/13/22 06:30 AST 22 U/L (0-32) 03/13/22 06:30 ALT 18 U/L (0-33) 03/13/22 06:30 Alkaline Phosphatase 40 IU/L (35-105) 03/13/22 06:30 Creatine Kinase 28 U/L (26-192) 03/13/22 06:30 C-Reactive Protein 3.1 mg/L (0.0-4.9) 03/13/22 06:30 Total Protein 6.1 g/dL (6.6-8.7) L 03/13/22 06:30 Albumin 4.2 g/dL (3.5-5.2) 03/13/22 06:30 Globulin 1.9 g/dL (1.3-4.6) 03/13/22 06:30 Vitamin B12 480 pg/mL (232-1245) 03/13/22 06:30 Folate 12.2 ng/mL (4.8-37.3) 03/13/22 06:30 TSH 0.56 uIU/mL (0.27-4.20) 03/13/22 06:30 HCG, Qual Negative (Negative) 03/13/22 06:30 Urine Color Yellow (Yellow) 03/13/22 06:28 Urine Appearance Clear (CLEAR) 03/13/22 06:28 Urine pH 5 (5-7) 03/13/22 06:28 Ur Specific [place] 1.020 (1.005-1.030) 03/13/22 06:28 Urine Protein Neg (Negative) 03/13/22 06:28 Urine Glucose (UA) Norm (Normal) 03/13/22 06:28 Urine Ketones Negative (Negative) 03/13/22 06:28 Urine Blood Neg (Negative) 03/13/22 06:28 Urine Nitrate Negative (Negative) 03/13/22 06:28 Urine Bilirubin Neg (Negative) 03/13/22 06:28 Urine Urobilinogen Norm mg/dL (Negative) 03/13/22 06:28 Ur Leukocyte Esterase Negative (Negative) 03/13/22 06:28 Influenza Type A Ag Negative (Negative) 03/13/22 05:35 Influenza Type B Ag Negative (Negative) 03/13/22 05:35 Blood Type A Positive 03/13/22 08:04 Rho(D) Type Positive 03/13/22 08:04 Antibody Screen Negative 03/13/22 08:04 Crossmatch See Detail 03/13/22 08:04 Discharge Plan Discharge Patient Disposition: Admitted As Inpatient Admit Provider: Chavez Schmid Clinical Impression: Anemia, Acute hip pain Condition: Stable Sign Out Sign Out Data: Patient Sign Out occurred on 03/13/22 at 06:45. Patient's care was discussed, and care was transferred from to Roger Easley DO. Coding Level of Care Code ED [employer] Certified Internetwork Expert for Maryanneg Fwd Exam Comprehensive
[2022-03-13] MEDS: ketorolac 30 mg/mL INJ 15 MG IVP (05:24)
[2022-03-13] MEDS: sodium chloride 0.9% 1,000 ML 999 ML IV (05:24)
--- NOTE | 2022-03-13 05:25 | XRR_ITS ---
PROCEDURE INFORMATION: Exam: XR Pelvis Exam date and time: 03/13/2022 5:32 AM Age: 31 years old Clinical indication: Hip pain; Bilateral; Additional info: B hip pain TECHNIQUE: Imaging protocol: XR pelvis. Views: 1 or 2 view. COMPARISON: CT abdomen pelvis w con* [id number] 04/26/2021 1:00 PM FINDINGS: Bones/joints: Single AP view the pelvis. Normal appearance of the bones and joint spaces. Soft tissues: Unremarkable. XR/XR pelvis 1-2V* [id number] IMPRESSION: No acute findings.
[2022-03-13 05:58] LABS: Influenza A by IFA Negative (Negative); Influenza B by IFA Negative (Negative)
[2022-03-13 06:41] LABS: Basophils % 0.2 %; Eosinophils % 0.2 %; Hematocrit 21.6 % (37.0-47.0); Lymphocytes # 0.2 10^3/uL (0.8-4.8); Lymphocytes % 3.6 %; Mean Corpuscular HGB Conc 28.2 g/dL (30.0-36.0); Mean Corpuscular Hemoglobin 19.2 pg (28.0-34.0); Mean Corpuscular Volume 67.9 fl (81-99); Monocytes # 0.4 10^3/uL (0.2-0.9); Monocytes % 7.6 %; Neutrophils # 4.14 10^3/uL (1.8-7.7); Nucleated Red Blood Cells % 0 %; Platelet Count 207 10^3/cmm (130-400); Red Blood Count 3.18 10^6/uL (4.1-5.3); Red Cell Distribution Width 19.2 % (12.1-15.1); White Blood Count 4.7 10^3/uL (4.0-10.0)
[2022-03-13 06:58] LABS: HCG, Serum Qual Negative (Negative)
[2022-03-13 07:00] LABS: Add Urine Microscopic? NO; Charge for UA Resulting for Rev
[2022-03-13 07:06] LABS: Alanine Aminotransferase 18 U/L (0-33); Albumin Level 4.2 g/dL (3.5-5.2); Alkaline Phosphatase 40 IU/L (35-105); Anion Gap 14.6 (5-19); Aspartate Amino Transferase 22 U/L (0-32); Blood Urea Nitrogen 7 mg/dL (6-20); C Reactive Protein 3.1 mg/L (0.0-4.9); Calcium 7.5 mg/dL (8.5-10.5); Carbon Dioxide 19 mmol/L (22-29); Chloride 109 mmol/L (98-107); Creatine Phosphokinase 28 U/L (26-192); Globulin 1.9 g/dL (1.3-4.6); Glomerular Filtration Rate 142.1 mL/min (90-130); Glucose 92 mg/dL (65-115); Osmolality Calculated 286 mOsm/kg (285-295); Potassium 3.6 mmol/L (3.5-5.1); Sodium 139 mmol/L (136-145); Total Bilirubin 0.2 mg/dL (0.15-1.2); Total Protein 6.1 g/dL (6.6-8.7)
[2022-03-13 07:19] LABS: Bilirubin Urine Neg (Negative); Blood Urine Neg (Negative); Glucose Urine UA Norm (Normal); Ketones Urine Negative (Negative); Leukocyte Esterase Urine Negative (Negative); Nitrate Urine Negative (Negative); Protein Urine Neg (Negative); Urine Appearance Clear (CLEAR); Urine Color Yellow (Yellow); Urobilinogen Urine Norm (Negative); pH Urine 5 (5-7)
[2022-03-13 07:54] LABS: Hemoglobin 6.1 g/dL (11.5-15.3)
--- NOTE | 2022-03-13 07:57 | PC.NURSE ---
Critical lab (hgb 6.1) reported to Dr. Easley, no orders at this time. Currently he is @BS.
[2022-03-13] MEDS: fentaNYL 50 mcg/mL INJ 2mL 25 MCG IVP (08:14)
--- NOTE | 2022-03-13 09:32 | PC.NURSE ---
PRBCs initiated @0920; pt LEXIE jimenez.
--- NOTE | 2022-03-13 09:55 | P.HP_ITS ---
Providers/Chief Complaint Admitting Physician: Chavez Schmid Primary Care Provider: Dash Velazquez MD Chief Complaint: hip pains down the legs History of Present Illness Carmita Zaragoza is a 31 year old female with no significant past medical history who is presenting to emergency room with complaints of dizziness, weakness, tiredness, generalized muscle aches. This started couple of days ago. Yesterday she had very severe episode of dizziness which was short lasting which almost made her faint. No focal weakness or sensory loss. Muscle aches are more pronounced in the hips bilaterally. She reports heavy menstrual periods. She states that pain in the hips usually associated with her menstrual periods. She denies rectal blood or black stool. Denies nausea or vomiting. Denies vaginal pain, discharge, history of recent sexually transmitted disease. She re ports possible subjective fever earlier. She states that she was going to have sinus infection which is usually the cause of her fever. However she denies any sore throat or runny nose. Her voice however is a little congested. She denies chest pain, shortness of breath, cough, palpitations. No headache or neck pain. No dysuria. No back pain. Denies any unintentional weight loss. Reports si milar episodes in the past. She states that she has chronic anemia. She was told to take iron but she is unable to tolerate it. It causes significant GI complaints such as nausea and vomiting. Review of systems otherwise is negative except positive and negative pertinent as described above. All systems are reviewed. Medications/Allergies Home Medications Medication Instructions Recorded Confirmed Last Taken Type acetaminophen 500 mg tablet 1,000 mg PO Q6H PRN 12/07/20 08/14/21 07/27/21 History multivitamin with minerals-folic 1 tab PO DAILY 04/26/21 08/14/21 07/27/21 History acid 200 mcg chewable tablet (Adult Multivitamin Gummies) pantoprazole 40 mg tablet,delayed 40 mg PO DAILY 30 Days #30 tab 07/28/21 08/14/21 Unknown Rx release (Protonix) Allergies Allergy/AdvReac Type Severity Reaction Status Date / Time Penicillins Allergy ALGY-Rash Verified 08/14/21 10:09 PFSH Acute PFSH: Medical History Abdominal pain Biliary dyskinesia Chronic diarrhea Gastritis Family History Other Diabetes Hypertension Denies family history of Anesthesia complication Bleeding disorder Social History Smoking and tobacco status: current every day smoker cigarettes Second hand smoke exposure: No Alcohol intake: never Adopted: No Caregiver/support person: Yes Lives independently: Yes Household members: spouse and family Marital status: Pets and animals: No History of recent travel: No Sexually active: Yes Current gender identity: Female Angle/Confucianist: Jehovah'S Witness Female Reproductive History: Date of last menstrual period: 04/21/21 Vitals/I&O/Wt Last Vital Signs Temp 98.1 F 03/13/22 09:44 Pulse 101 H 03/13/22 09:44 Resp 16 03/13/22 09:44 BP 101/66 03/13/22 09:44 Pulse Ox 99 03/13/22 09:44 03/12/22 03/13/22 03/13/22 22:59 06:59 14:59 Intake Total 0 / 0 Balance 0 / 0 Weight last 48 hrs Weight 44.452 kg Physical Exam Narrative: The patient is awake alert and oriented. No acute distress. Mood and affect are appropriate. Responses are adequate. Skin is warm and dry. Pale. Moist mucous membranes Neck supple. No JVD Eyes PERRL, extraocular muscles are intact. No icterus Lungs are clear to auscultation bilaterally. No wheezes or crackles. Heart S1, S2, regular Abdomen is soft, nontender, bowel sounds are present Extremities no edema cyanosis or calf tenderness bilaterally Normal range of motion's in the lower extremities including the hips. No joint swelling or redness. No muscle spasms. Normal peripheral pulses. Neuro exam is nonfocal. Data : 03/13/22 06:30 03/13/22 06:30 Other Labs: Radiology Impressions Pelvis X-Ray 03/13/22 05:25 IMPRESSION: No acute findings. Laboratory Results WBC 4.7 10^3/uL (4.0-10.0) 03/13/22 06:30 RBC 3.18 10^6/uL (4.1-5.3) L 03/13/22 06:30 Hgb 6.1 g/dL (11.5-15.3) L* 03/13/22 06:30 Hct 21.6 % (37.0-47.0) L 03/13/22 06:30 MCV 67.9 fl (81-99) L 03/13/22 06:30 MCH 19.2 pg (28.0-34.0) L 03/13/22 06:30 MCHC 28.2 g/dL (30.0-36.0) L 03/13/22 06:30 RDW 19.2 % (12.1-15.1) H 03/13/22 06:30 Plt Count 207 10^3/cmm (130-400) 03/13/22 06:30 MPV 10.0 fL (7.4-10.4) 03/13/22 06:30 Neut % (Auto) 88.0 % 03/13/22 06:30 Lymph % (Auto) 3.6 % 03/13/22 06:30 [place] % (Auto) 7.6 % 03/13/22 06:30 Eos % (Auto) 0.2 % 03/13/22 06:30 Baso % (Auto) 0.2 % 03/13/22 06:30 Neut # (Auto) 4.14 10^3/uL (1.8-7.7) 03/13/22 06:30 Lymph # (Auto) 0.2 10^3/uL (0.8-4.8) L 03/13/22 06:30 [place] # (Auto) 0.4 10^3/uL (0.2-0.9) 03/13/22 06:30 Eos # (Auto) 0.0 10^3/uL (0.0-0.8) 03/13/22 06:30 Baso # (Auto) 0.0 10^3/uL (0.0-0.1) 03/13/22 06:30 Nucleated RBC % (auto) 0 % 03/13/22 06:30 Nucleated RBCs # 0.0 /100WBC 03/13/22 06:30 Sodium 139 mmol/L (136-145) 03/13/22 06:30 Potassium 3.6 mmol/L (3.5-5.1) 03/13/22 06:30 Chloride 109 mmol/L (98-107) H 03/13/22 06:30 Carbon Dioxide 19 mmol/L (22-29) L 03/13/22 06:30 Anion Gap 14.6 (5-19) 03/13/22 06:30 BUN 7 mg/dL (6-20) 03/13/22 06:30 Creatinine 0.5 mg/dL (0.5-0.9) 03/13/22 06:30 GFR Calculation 142.1 mL/min (90-130) H 03/13/22 06:30 Glucose 92 mg/dL (65-115) 03/13/22 06:30 Calculated Osmolality 286 mOsm/kg (285-295) 03/13/22 06:30 Calcium 7.5 mg/dL (8.5-10.5) L 03/13/22 06:30 Total Bilirubin 0.2 mg/dL (0.15-1.2) 03/13/22 06:30 AST 22 U/L (0-32) 03/13/22 06:30 ALT 18 U/L (0-33) 03/13/22 06:30 Alkaline Phosphatase 40 IU/L (35-105) 03/13/22 06:30 Creatine Kinase 28 U/L (26-192) 03/13/22 06:30 C-Reactive Protein 3.1 mg/L (0.0-4.9) 03/13/22 06:30 Total Protein 6.1 g/dL (6.6-8.7) L 03/13/22 06:30 Albumin 4.2 g/dL (3.5-5.2) 03/13/22 06:30 Globulin 1.9 g/dL (1.3-4.6) 03/13/22 06:30 HCG, Qual Negative (Negative) 03/13/22 06:30 Urine Color Yellow (Yellow) 03/13/22 06:28 Urine Appearance Clear (CLEAR) 03/13/22 06:28 Urine pH 5 (5-7) 03/13/22 06:28 Ur Specific [place] 1.020 (1.005-1.030) 03/13/22 06:28 Urine Protein Neg (Negative) 03/13/22 06:28 Urine Glucose (UA) Norm (Normal) 03/13/22 06:28 Urine Ketones Negative (Negative) 03/13/22 06:28 Urine Blood Neg (Negative) 03/13/22 06:28 Urine Nitrate Negative (Negative) 03/13/22 06:28 Urine Bilirubin Neg (Negative) 03/13/22 06:28 Urine Urobilinogen Norm mg/dL (Negative) 03/13/22 06:28 Ur Leukocyte Esterase Negative (Negative) 03/13/22 06:28 Influenza Type A Ag Negative (Negative) 03/13/22 05:35 Influenza Type B Ag Negative (Negative) 03/13/22 05:35 Blood Type A Positive 03/13/22 08:04 Rho(D) Type Positive 03/13/22 08:04 Antibody Screen Negative 03/13/22 08:04 Crossmatch See Detail 03/13/22 08:04 A&P Assessment and plan (1) Anemia: Status: Acute Plan Carmita Jeannine Zaragoza is a 31 year old female with no significant past medical history who is presenting to emergency room with complaints of dizziness, weakness, tiredness, generalized muscle aches. Anemia, microcytic. Probably acute on chronic. Could be related to acute blood loss secondary to heavy menstrual periods. Will order anemia work-up and TSH. Transfusion is ordered by ER. We will monitor H&H. We will start replacing any deficiencies if found. Might benefit from hematology and CONCRETE PUMP OPERATOR HELPER referral after discharge. Near syncopal episode most likely due to severe symptomatic anemia. Tachycardia probably secondary to anemia. Generalized muscle aches. She states that the pain in the hips is commonly experienced with the menstrual periods. Generalized muscle aches could be from the anemia or from other viral syndrome. She also reports some subjective fevers recently. Will order viral panel. Will hydrate and monitor. Supportive care. Pain medications and nausea medications as needed. History of gastritis. Continue home PPI. DVT prophylaxis. Teds and SCDs. Early ambulation. No blood thinners due to severe anemia. The plan of care was discussed with the patient. She verbalized understanding and agreement. Attestations Medical Necessity Statement*: I expect that the patient might be ready for discharge tomorrow. Admitting for observation and close monitoring. Coding Level of Care Code Acute Validation Leader for David Gu Diagnoses Anemia D64.9
[2022-03-13 10:27] LABS: Ferritin 5 ng/mL (15-150); Iron 11 ug/dL (37-145); Percent Saturation 2.7 % (20-50); Total Iron Binding Capacity 396 mcg/dl; Transferrin 338 mg/dL (200-360); Unsaturated Iron Binding 385 ug/dL (112-347)
[2022-03-13 10:39] LABS: Folate Level 12.2 ng/mL (4.8-37.3)
[2022-03-13 11:13] LABS: Vitamin B12 480 pg/mL (232-1245)
[2022-03-13] MEDS: HYDROcodone-acetaminophen 5-325 mg Tablet 1 TAB PO ×3 (11:15→19:23)
[2022-03-13] MEDS: sodium chloride 0.9% 100 mL Bag 50 ML IV (11:17)
[2022-03-13 12:07] LABS: Thyroid Stimulating Hormone 0.56 uIU/mL (0.27-4.20)
[2022-03-13] MEDS: sodium chloride 0.9% (100 ml) 100 ML (14:19)
[2022-03-13 18:56] LABS: Hematocrit 34.8 % (37.0-47.0); Hemoglobin 10.6 g/dL (11.5-15.3)
[2022-03-13] MEDS: acetaminophen 325 mg Tablet 650 MG PO (23:31)
[2022-03-14] VITALS (9 sets, daily range): BP systolic 95–112; BP diastolic 62–74; PULSE 56–75; RESP 16–20; TEMP 36.6–37.1; O2SAT 97–98
[2022-03-14 05:15] LABS: Basophils % 0.6 %; Hematocrit 39.3 % (37.0-47.0); Hemoglobin 11.3 g/dL (11.5-15.3); Lymphocytes # 1.1 10^3/uL (0.8-4.8); Lymphocytes % 31.9 %; Mean Corpuscular HGB Conc 28.8 g/dL (30.0-36.0); Mean Corpuscular Hemoglobin 21.1 pg (28.0-34.0); Mean Corpuscular Volume 73.3 fl (81-99); Mean Platelet Volume 9.6 fL (7.4-10.4); Monocytes # 0.4 10^3/uL (0.2-0.9); Monocytes % 11.6 %; Neutrophils # 1.86 10^3/uL (1.8-7.7); Neutrophils % 55.6 %; Nucleated Red Blood Cells % 0 %; Platelet Count 259 10^3/cmm (130-400); Red Blood Count 5.36 10^6/uL (4.1-5.3); White Blood Count 3.4 10^3/uL (4.0-10.0)
[2022-03-14 05:38] LABS: Alanine Aminotransferase 21 U/L (0-33); Albumin Level 4.2 g/dL (3.5-5.2); Alkaline Phosphatase 48 IU/L (35-105); Anion Gap 17.6 (5-19); Aspartate Amino Transferase 28 U/L (0-32); Blood Urea Nitrogen 11 mg/dL (6-20); C Reactive Protein 8.8 mg/L (0.0-4.9); Calcium 8.1 mg/dL (8.5-10.5); Carbon Dioxide 18 mmol/L (22-29); Chloride 106 mmol/L (98-107); Globulin 2.7 g/dL (1.3-4.6); Glomerular Filtration Rate 142.1 mL/min (90-130); Glucose 78 mg/dL (65-115); Magnesium 2.3 mg/dL (1.7-2.3); Osmolality Calculated 284 mOsm/kg (285-295); Potassium 3.6 mmol/L (3.5-5.1); Sodium 138 mmol/L (136-145); Total Bilirubin 0.3 mg/dL (0.15-1.2); Total Protein 6.9 g/dL (6.6-8.7)
[2022-03-14] MEDS: HYDROcodone-acetaminophen 5-325 mg Tablet 1 TAB PO ×3 (08:37→21:53)
[2022-03-14] MEDS: acetaminophen 325 mg Tablet 650 MG PO (08:37)
[2022-03-14] MEDS: iron sucrose 200 MG in sodium chloride 0.9% (100 ml) 100 ML 220 MG IV (08:38)
[2022-03-14] MEDS: pantoprazole DR 40 mg Tablet PO (08:38)
[2022-03-14] MEDS: docusate sodium 100 mg Capsule PO ×2 (08:38→17:31)
--- NOTE | 2022-03-14 11:48 | PC.CHAP ---
Pastoral Care Encounter/Spiritual Assessment Type of Contact [] Declined senior web applications developer visit [] Patient/Family/Request visit [] Outpatient visit [] Follow-up visit [] Physician referral [] Code/Alert [x] Routine visit [] Staff referral [] Actively dying [] Patient sleeping [] Family support [] [] Out of room [] Palliative care [] [] Receiving care in room [] Pre-surgical visit [] Trauma [] Long length of stay [] ICU visit [] Other: Relational/Emotional Strength [x] Patient feels connected with others/family/visitors/staff [] Distress [] Loneliness/isolation [] Abandonment Spirituality of Patient [x] Person of Angle [x] Attends Oriental Orthodox of their Angle [x] Believes in Prayer [] Reads Bible or Anglican materials [] There are Spiritual issues to be addressed Commercial Construction Estimator Interventions [x] Prayer [x] Active listening [x] Non-anxious presence [x] Spiritual/emotional support [] Crisis/trauma care [] Spiritual counseling [] Bereavement support [] Provided bereavement packet [] Provided Bible/devotional materials [] Provided toy/stuffed animal, coloring book to patient or family member [] Provided Communion [] Anointing/[place] [x] Salvation [] Completed spiritual assessment [] Other: Impact on Illness or Injury [] Angry [] Fearful [] Anxious [] Often cries [] Exhaustion [] Unable to work [] Unable to attend restoration [] Unable to walk/stand [] Unable to read [] Unable to drive [] Unable to eat/drink [] Unable to sleep [] Unable to be with family [] Patient intubated [] Other: Summary Time spent with patient 10 min
--- NOTE | 2022-03-14 14:12 | P.PN_ITS ---
Subjective Subjective: Seen this AM. Her menstrual period has stopped at this point. She feels a lot better compared to yesterday. Hemoglobin is 11 today status post 2 units of blood transfusion. Vitals/I&O/Wt Last Vital Signs Temp 98.3 F 03/14/22 11:48 Pulse 64 03/14/22 11:48 Resp 16 03/14/22 11:48 BP 99/62 03/14/22 11:48 Pulse Ox 97 03/14/22 11:48 03/13/22 03/14/22 03/14/22 22:59 06:59 14:59 Intake Total 930 / 1400 110 / 110 Balance 930 / 1400 110 / 110 Weight last 48 hrs Weight 44.452 kg Weight 44.452 kg Physical Exam Narrative: General: Alert oriented x3, patient seen sitting up in bed with at bedside. HEENT: Normocephalic, atraumatic, EOMI, breathing normally Cardio: Regular rate rhythm, normal S1-S2, no murmurs Respiratory: Good bilateral air entry, no wheezes no rhonchi appreciated GI: Abdomen soft, nontender, nondistended, bowel sounds + Behavior: Appropriate and cooperative Extremities: Pulses 2+, no edema, no cyanosis Data : 03/14/22 04:16 03/14/22 04:16 Micro: Microbiology 03/13/22 09:10 Occult Blood (FIT) - Final Stool Routine Collection A&P Assessment and plan (1) Anemia: Status: Acute (2) Menorrhagia: Status: Acute Plan #Acute anemia secondary to menorrhagia #Severe iron deficiency anemia most likely secondary to menorrhagia #Syncope on admission most likely secondary to anemia #Generalized muscle aches all slightly secondary to premenstrual syndrome #History of gastritis continue home PPI -Patient's menstrual period has stopped. She has a history of menorrhagia and has irregular cycles. Work-up for anemia has been completed. I believe she has iron deficiency anemia. I ordered Venofer IV daily x5 days. I will give her first and second dose in the hospital and have her follow-up with her PCP. She states she is unable to tolerate oral iron. ? She will need to follow-up with RETAIL LOSS PREVENTION OFFICER at discharge as well. We will refer her to women's clinic. Discussed with patient and she is okay to do this. ? We will continue to monitor hemoglobin today. We will discharge patient in the morning. Attestations Medical Necessity Statement*: Will need to stay tonight for observation of hemoglobin. Will discharge patient tomorrow. Coding Level of Care Code Acute Supervisor Plate Pasting for g Fwd Diagnoses Anemia D64.9 Menorrhagia N92.0
[2022-03-15 03:22] VITALS: BP 105/68; PULSE 60; RESP 15; TEMP 36.7; O2SAT 98
[2022-03-15 05:06] LABS: Basophils % 1.1 %; Eosinophils % 0.5 %; Hematocrit 39.9 % (37.0-47.0); Hemoglobin 11.7 g/dL (11.5-15.3); Lymphocytes # 2.5 10^3/uL (0.8-4.8); Lymphocytes % 66.3 %; Mean Corpuscular HGB Conc 29.3 g/dL (30.0-36.0); Mean Corpuscular Hemoglobin 21.1 pg (28.0-34.0); Mean Platelet Volume 9.4 fL (7.4-10.4); Monocytes # 0.3 10^3/uL (0.2-0.9); Monocytes % 8.2 %; Neutrophils % 23.6 %; Nucleated Red Blood Cells % 0 %; Platelet Count 228 10^3/cmm (130-400); Red Blood Count 5.54 10^6/uL (4.1-5.3); Red Cell Distribution Width 22.5 % (12.1-15.1); White Blood Count 3.8 10^3/uL (4.0-10.0)
[2022-03-15 05:34] LABS: Neutrophils # 0.89 10^3/uL (1.8-7.7)
[2022-03-15 06:00] VITALS: PULSE 57
--- NOTE | 2022-03-15 07:55 | P.DS_ITS ---
Discharge Providers Date of Admission: 03/13/22 08:22 Date of Discharge: March 15, 2022 Attending Provider at Admission: Chavez Schmid Attending Provider at Discharge: Devika Vasquez MD Primary Care Provider: Dash Velazquez MD Diagnoses at Discharge Discharge Diagnosis (1) Anemia: Status: Acute (2) Menorrhagia: Status: Acute Reason for Visit Reason for Visit: hip pains down the legs Brief History: HPI as per Dr. Schmid, February Nik is a 31 year old female with no significant past medical history who is presenting to emergency room with complaints of dizziness, weakness, tiredness, generalized muscle aches.? This started couple of days ago.? Yesterday she had very severe episode of dizziness which was short lasting which almost made her faint.? No focal weakness or sensory loss.? Muscle aches are more pronounced in the hips bilaterally.? She reports heavy menstrual periods.? She states that pain in the hips usually associated with her menstrual periods.? She denies rectal blood or black stool.? Denies nausea or vomiting.? Denies vaginal pain, discharge, history of recent sexually transmitted disease.? She reports possible subjective fever earlier.? She states that she was going to have sinus infection which is usually the cause of her fever.? However she denies any sore throat or runny nose.? Her voice however is a little congested.? She denies chest pain, shortness of breath, cough, palpitations.? No headache or neck pain.? No dysuria.? No back pain.? Denies any unintentional weight loss. Reports similar episodes in the past. She states that she has chronic anemia.? She was told to take iron but she is unable to tolerate it.? It causes significant GI complaints such as nausea and vomiting. Review of systems otherwise is negative except positive and negative pertinent as described above.? All systems are reviewed. Hospital Course Hospital Course Patient was admitted for acute blood loss anemia secondary to menorrhagia. P jami states that she has had menorrhagia for a long time and in the past has also tried oral contraceptive pills which have not really worked for her. She could not tolerate them. She also cannot tolerate oral iron where she gets nausea and sometimes vomiting with that. She was given 2 units of blood while in the hospital. Patient was also started on IV Venofer to complete a 5-day course. She received 2 doses in the hospital and 3 were ordered for her as an outpatient. She was given follow-up with PATIENT FINANCIAL SERVICES SPECIALIST and her primary care physician at discharge. Hemoglobin was stable around 11 range. FOBT was negative. Patient was discharged home in a stable condition. All questions were answered to her satisfaction. Physical Exam Narrative: General: Alert oriented x3, patient seen sitting up in bed HEENT: Normocephalic, atraumatic, EOMI, breathing normally Cardio: Regular rate rhythm, normal S1-S2, no murmurs Respiratory: Good bilateral air entry, no wheezes no rhonchi appreciated GI: Abdomen soft, nontender, nondistended, bowel sounds + Behavior: Appropriate and cooperative Extremities: Pulses 2+, no edema, no cyanosis Discharge Data Studies Completed and Pending Completed Studies During Hospitalization Category Date Time Status XR pelvis 1-2V* [id number] Stat Exams 03/13/22 05:25 Completed Pending at discharge Category Date Time Status Respiratory Viral Panel PCR Stat Lab 03/13/22 09:49 Ordered Radiology Impressions Pelvis X-Ray 03/13/22 05:25 IMPRESSION: No acute findings. Laboratory Results WBC 3.8 10^3/uL (4.0-10.0) L 03/15/22 04:19 RBC 5.54 10^6/uL (4.1-5.3) H 03/15/22 04:19 Hgb 11.7 g/dL (11.5-15.3) 03/15/22 04:19 Hct 39.9 % (37.0-47.0) 03/15/22 04:19 MCV 72.0 fl (81-99) L 03/15/22 04:19 MCH 21.1 pg (28.0-34.0) L 03/15/22 04:19 MCHC 29.3 g/dL (30.0-36.0) L 03/15/22 04:19 RDW 22.5 % (12.1-15.1) H 03/15/22 04:19 Plt Count 228 10^3/cmm (130-400) 03/15/22 04:19 MPV 9.4 fL (7.4-10.4) 03/15/22 04:19 Neut % (Auto) 23.6 % 03/15/22 04:19 Lymph % (Auto) 66.3 % 03/15/22 04:19 [place] % (Auto) 8.2 % 03/15/22 04:19 Eos % (Auto) 0.5 % 03/15/22 04:19 Baso % (Auto) 1.1 % 03/15/22 04:19 Neut # (Auto) 0.89 10^3/uL (1.8-7.7) L* 03/15/22 04:19 Lymph # (Auto) 2.5 10^3/uL (0.8-4.8) 03/15/22 04:19 [place] # (Auto) 0.3 10^3/uL (0.2-0.9) 03/15/22 04:19 Eos # (Auto) 0.0 10^3/uL (0.0-0.8) 03/15/22 04:19 Baso # (Auto) 0.0 10^3/uL (0.0-0.1) 03/15/22 04:19 Nucleated RBC % (auto) 0 % 03/15/22 04:19 Nucleated RBCs # 0.0 /100WBC 03/15/22 04:19 Sodium 138 mmol/L (136-145) 03/14/22 04:16 Potassium 3.6 mmol/L (3.5-5.1) 03/14/22 04:16 Chloride 106 mmol/L (98-107) 03/14/22 04:16 Carbon Dioxide 18 mmol/L (22-29) L 03/14/22 04:16 Anion Gap 17.6 (5-19) 03/14/22 04:16 BUN 11 mg/dL (6-20) 03/14/22 04:16 Creatinine 0.5 mg/dL (0.5-0.9) 03/14/22 04:16 GFR Calculation 142.1 mL/min (90-130) H 03/14/22 04:16 Glucose 78 mg/dL (65-115) 03/14/22 04:16 Calculated Osmolality 284 mOsm/kg (285-295) L 03/14/22 04:16 Calcium 8.1 mg/dL (8.5-10.5) L 03/14/22 04:16 Magnesium 2.3 mg/dL (1.7-2.3) 03/14/22 04:16 Iron 11 ug/dL (37-145) L 03/13/22 06:30 TIBC 396 mcg/dl 03/13/22 06:30 % Saturation 2.7 % (20-50) L 03/13/22 06:30 Unsat Iron Binding 385 ug/dL (112-347) H 03/13/22 06:30 Transferrin 338 mg/dL (200-360) 03/13/22 06:30 Ferritin 5 ng/mL (15-150) L 03/13/22 06:30 Total Bilirubin 0.3 mg/dL (0.15-1.2) 03/14/22 04:16 AST 28 U/L (0-32) 03/14/22 04:16 ALT 21 U/L (0-33) 03/14/22 04:16 Alkaline Phosphatase 48 IU/L (35-105) 03/14/22 04:16 Creatine Kinase 28 U/L (26-192) 03/13/22 06:30 C-Reactive Protein 8.8 mg/L (0.0-4.9) H 03/14/22 04:16 Total Protein 6.9 g/dL (6.6-8.7) 03/14/22 04:16 Albumin 4.2 g/dL (3.5-5.2) 03/14/22 04:16 Globulin 2.7 g/dL (1.3-4.6) 03/14/22 04:16 Vitamin B12 480 pg/mL (232-1245) 03/13/22 06:30 Folate 12.2 ng/mL (4.8-37.3) 03/13/22 06:30 TSH 0.56 uIU/mL (0.27-4.20) 03/13/22 06:30 HCG, Qual Negative (Negative) 03/13/22 06:30 Urine Color Yellow (Yellow) 03/13/22 06:28 Urine Appearance Clear (CLEAR) 03/13/22 06:28 Urine pH 5 (5-7) 03/13/22 06:28 Ur Specific [place] 1.020 (1.005-1.030) 03/13/22 06:28 Urine Protein Neg (Negative) 03/13/22 06:28 Urine Glucose (UA) Norm (Normal) 03/13/22 06:28 Urine Ketones Negative (Negative) 03/13/22 06:28 Urine Blood Neg (Negative) 03/13/22 06:28 Urine Nitrate Negative (Negative) 03/13/22 06:28 Urine Bilirubin Neg (Negative) 03/13/22 06:28 Urine Urobilinogen Norm mg/dL (Negative) 03/13/22 06:28 Ur Leukocyte Esterase Negative (Negative) 03/13/22 06:28 Influenza Type A Ag Negative (Negative) 03/13/22 05:35 Influenza Type B Ag Negative (Negative) 03/13/22 05:35 Blood Type A Positive 03/13/22 08:04 Rho(D) Type Positive 03/13/22 08:04 Antibody Screen Negative 03/13/22 08:04 Crossmatch See Detail 03/13/22 08:04 Vitals Last Vital Signs Temp 98.1 F 03/15/22 03:22 Pulse 57 L 03/15/22 06:00 Resp 15 03/15/22 03:22 BP 105/68 03/15/22 03:22 Pulse Ox 98 03/15/22 03:22 Discharge Plan Discharge Patient Disposition: Home Condition: Stable Prescriptions: Continued acetaminophen 500 mg Tablet 1,000 mg PO Q6H PRN (Reason: Pain) 0RF Adult Multivitamin Gummies 200 mcg Tablet,Chewable 1 tab PO DAILY 0RF Discharge Orders: Discharge Order (Routine); Ordered 03/15/22 Ordered By: Devika Vasquez Referrals: Dash Velazquez MD [Primary Care Provider] - 03/22/22 10:00 am Lisa Tristan MD [Physician] - 1 week Discharge Diet: Usual diet Discharge Activity: Resume usual activity Patient Instructions: Iron Deficiency Anemia (GEN), Opioid Safety Activity Restrictions/Additional Instructions: You will need to come back to hospital to complete your iron infusion for next 3 days. Please follow up with striker out and primary care doctor outpatient. Discharge Attestations Time Spent in Discharge Care*: less than 30 min Quality Metrics Clinical Quality Measures [ No reported AMI, CVA or VTE this stay] Coding Level of Care Code Acute Chg FW DC note Diagnoses Anemia D64.9 Menorrhagia N92.0
[2022-03-15 08:30] VITALS: BP 100/65; PULSE 76; RESP 18; TEMP 36.1; O2SAT 97
[2022-03-15] MEDS: docusate sodium 100 mg Capsule PO (08:36)
[2022-03-15] MEDS: pantoprazole DR 40 mg Tablet PO (08:36)
[2022-03-15] MEDS: iron sucrose 200 MG in sodium chloride 0.9% (100 ml) 100 ML 220 MG IV (08:37)
[2022-03-15] MEDS: HYDROcodone-acetaminophen 5-325 mg Tablet 1 TAB PO (08:44)
[2022-03-15 11:21] VITALS: BP 97/60; PULSE 65; RESP 18; TEMP 36.4; O2SAT 96
[2022-03-15 13:34] VITALS: BP 97/60; PULSE 65; RESP 18; TEMP 36.4; O2SAT 96
== END 2022-03-15 14:03 | disposition home or self-care (01) ==
LOC: ER 08:48 → MEDSURG 15:05
PROVIDERS: Emergency Medicine; Admitting Provider Internal Medicine; Emergency Provider Student in an Organized Health Care Education/Training Program; PCP Family Medicine; Visit Provider Internal Medicine
DX: D64.9 Anemia, unspecified (principal); N92.0 Excessive and frequent menstruation with regular cycle; E61.1 Iron deficiency; R55 Syncope and collapse; M79.10 Myalgia, unspecified site; K29.70 Gastritis, unspecified, without bleeding; F17.210 Nicotine dependence, cigarettes, uncomplicated
CPT/HCPCS: 36415; 36430; 72170; 80053; 81003; 82274; 82550; 82607; 82728; 82746; 83540; 83550; 83735; 84443; 84466; 84703; 85014; 85018; 85025; 86140; 86850; 86900; 86920; 87804; 96361; 96374; 96375; 99285; G0378; J1756; J1885; J3010; J7030; P9016

== ENCOUNTER 2022-03-18 10:22 | Outpatient (RCR) | payer MEDICAID, SELFPAY ==
[2022-03-16] MEDS: iron sucrose 200 MG in sodium chloride 0.9% (100 ml) 100 ML 220 MG IV (10:43)
[2022-03-16 10:51] VITALS: BP 94/61; PULSE 96; RESP 18; TEMP 37; O2SAT 97
[2022-03-17] MEDS: iron sucrose 200 MG in sodium chloride 0.9% (100 ml) 100 ML 220 MG IV (10:35)
[2022-03-17 10:36] VITALS: BP 98/66; PULSE 91; RESP 18; TEMP 36.5; O2SAT 99
[2022-03-18] MEDS: iron sucrose 200 MG in sodium chloride 0.9% (100 ml) 100 ML 220 MG IV (10:27)
[2022-03-18 10:28] VITALS: BP 115/68; PULSE 79; RESP 18; TEMP 36.6; O2SAT 99
== END 2022-03-19 23:59 | disposition home or self-care (01) ==
LOC: GILAB 10:22
PROVIDERS: PCP Family Medicine; Visit Provider Internal Medicine
DX: D64.9 Anemia, unspecified (principal)
CPT/HCPCS: 87624; 96365; J1756

== ENCOUNTER 2022-04-19 09:39 | Observation (INO) | payer BC, MEDICAID, SELFPAY ==
[2022-04-14 13:20] VITALS: BMI 18.5
[2022-04-19] VITALS (18 sets, daily range): BP systolic 86–117; BP diastolic 40–69; PULSE 69–94; RESP 3–20; TEMP 36.1–37.4; O2SAT 95–100; BMI 18.5
[2022-04-19 06:33] LABS: Basophils % 0.5 %; Eosinophils # 0.1 10^3/uL (0.0-0.8); Eosinophils % 1.2 %; Hematocrit 45.1 % (37.0-47.0); Hemoglobin 14.5 g/dL (11.5-15.3); Lymphocytes # 3.2 10^3/uL (0.8-4.8); Lymphocytes % 41.7 %; Mean Corpuscular HGB Conc 32.2 g/dL (30.0-36.0); Mean Corpuscular Hemoglobin 26.5 pg (28.0-34.0); Mean Corpuscular Volume 82.3 fl (81-99); Mean Platelet Volume 9.6 fL (7.4-10.4); Monocytes # 0.5 10^3/uL (0.2-0.9); Monocytes % 6.5 %; Neutrophils # 3.77 10^3/uL (1.8-7.7); Neutrophils % 49.8 %; Nucleated Red Blood Cells % 0 %; Platelet Count 217 10^3/cmm (130-400); Red Blood Count 5.48 10^6/uL (4.1-5.3); White Blood Count 7.6 10^3/uL (4.0-10.0)
[2022-04-19] MEDS: ketorolac 30 mg/mL INJ IVP ×3 (06:33→19:23)
[2022-04-19] MEDS: acetaminophen 1,000 MG/100 ML PIGGYBACK 400 MG IV (06:33)
[2022-04-19] MEDS: sodium chloride 0.9% 1,000 ML 30 ML IV (06:33)
[2022-04-19] MEDS: scopolamine 1.5 Patch 1 PATCH TRANSDERMA (06:36)
--- NOTE | 2022-04-19 06:36 | P.ANESASSM_ITS ---
Pre-Anesthetic Assessment Height/Weight: Height 1.55 m Weight 44.452 kg Temp Pulse Resp BP Pulse Ox 97.0 F L 94 18 108/69 96 04/19/22 06:04 04/19/22 06:04 04/19/22 06:04 04/19/22 06:04 04/19/22 06:04 Preop Diagnosis: abnormal uterine bleeding, iron defiency anemia Operation Date: 04/19/22 07:00 Proposed Procedures p Laparoscopic Assist Vaginal Hysterectomy 56839/N81.4(Not Applicable) - Lisa Tristan MD s Laparoscopic Salpingectomy(Bilateral) - Lisa Tristan MD Familial anesthetic complications: None Was Beta Janie taken within 24 hours: N/A Was Clonidine taken within 24 hours: N/A Last intake: Intake Last Liquid Date 04/18/22 Last Liquid Time 23:00 Last Solid Date 04/18/22 Last Solid Time 20:30 Social Tobacco and No alcohol Exam alert, oriented x 3, clear to auscultation bilaterally and regular rate & rhythm Airway Submandibular: within normal limits Cervical ROM: within normal limits Mallampati: Class I Dentition: chipped Comments: Comments: Very large chip front central incisor History/ROS No significant complaints Pulmonary None reported CV/HEM Anemia METS > 4 None reported Hepatic None reported GI Hx of gastritis and biliary dyskinesia Metabolic None reported Musc/skel None reported Neuropsych Anxiety Anesthetic Plan ASA status: 3 (31 year old female daily smoker with hx of anemia, anxiety, gastritis, and biliary dyskinesia ) Anesthesia: Anesthesia Evaluation and General Other: We discussed risk and benefits of general anesthesia including PONV, sore throat (sometimes severe), corneal abrasion, positioning and peripheral nerve injuries, life threatening allergic reaction, post operative ICU admission requiring prolonged intubation, stroke, heart attack, , and rare incidences of recal l. Patient consents to proceed with general anesthesia. Risk of > 500 ml blood loss (7ml/kg in children): No Medications/Allergies Home Medications Medication Instructions Recorded Confirmed Last Taken Type acetaminophen 500 mg tablet 1,000 mg PO Q6H PRN 12/07/20 04/19/22 04/18/22 History multivitamin with minerals-folic 1 tab PO DAILY 04/26/21 04/19/22 04/18/22 History acid 200 mcg chewable tablet (Adult Multivitamin Gummies) Allergies Allergy/AdvReac Type Severity Reaction Status Date / Time Penicillins Allergy ALGY-Rash Verified 04/19/22 06:00 Current Medications Generic Name Dose Route Start Last Admin Trade Name Qing PRN Reason Stop Dose Admin Sodium Chloride 1,000 mls @ 30 mls/hr 04/19/22 06:00 04/19/22 06:33 Sodium Chloride 0.9% IV 04/20/22 05:59 30 mls/hr .Q24H VIDYA Administration PFSH Anesthesia Medical History Abdominal pain Anxiety Biliary dyskinesia Chronic diarrhea Emesis Gastritis Microcytic hypochromic anemia No pertinent past medical history neghx: htn, dm, thyriod, dvt/pe PCP: Dr. Velazquez Surgical History H/O removal of cyst right hand History of laparoscopic cholecystectomy (~02/2021) Hx of tubal ligation Family History Grandfather Diabetes maternal Grandmother Hypercholesteremia maternal Hypertension maternal Denies family history of Colon cancer Ovarian cancer Heart disease Breast cancer Uterine cancer Thyroid disease Stroke Female Reproductive History Date of last menstrual period: 03/31/22 Data Anesthesia : 04/19/22 06:18 04/19/22 06:18 Cardiac Studies: No Data to Display
[2022-04-19] MEDS: gabapentin 300 mg Capsule PO (06:37)
[2022-04-19] MEDS: phenazopyridine 100 mg Tablet 200 MG PO ×4 (06:37→21:19)
[2022-04-19] MEDS: CELEcoxib 200 mg Capsule 400 MG PO (06:38)
[2022-04-19 06:41] LABS: OR HCG Qualitative Urine Negative (Negative)
[2022-04-19 06:53] LABS: Anion Gap 17.3 (5-19); Blood Urea Nitrogen 16 mg/dL (6-20); Calcium 9.2 mg/dL (8.5-10.5); Carbon Dioxide 20 mmol/L (22-29); Chloride 103 mmol/L (98-107); Glomerular Filtration Rate 142.1 mL/min (90-130); Glucose 97 mg/dL (65-115); Osmolality Calculated 283 mOsm/kg (285-295); Potassium 4.3 mmol/L (3.5-5.1); Sodium 136 mmol/L (136-145)
--- NOTE | 2022-04-19 06:58 | W.PM.OPSUD ---
Surgery/Procedure H&P Update DATE OF PROCEDURE: April 19, 2022 DATE H&P PERFORMED: 04/11/22 H&P UPDATE INFORMATION: I have reviewed H&P completed within last 30 days, I have examined patient prior to procedure and No changes to prior documentation PREOP DIAGNOSIS: abnormal uterine bleeding, iron defiency anemia PLANNED PROCEDURE: Operation Date: 04/19/22 07:00 Proposed Procedures p Laparoscopic Assist Vaginal Hysterectomy 51179/N81.4(Not Applicable) - Lisa Tristan MD s Laparoscopic Salpingectomy(Bilateral) - Lisa Tristan MD
[2022-04-19 07:13] LABS: Add RBC Morph Yes; Slide Review Slide Review Perform
[2022-04-19 07:14] LABS: Anisocytosis 2+; Microcytosis 1+; RBC Morph Comp No
[2022-04-19 07:15] LABS: Macrocytosis 3+; Ovalocytes 1+
[2022-04-19 07:18] LABS: Pathology Refferal No
[2022-04-19] MEDS: vasopressin 20 unit/mL INJ 4 UNIT INJECTION (09:11)
--- NOTE | 2022-04-19 09:44 | W.PM.OPSUD ---
Surgery/Procedure H&P Update DATE OF PROCEDURE: April 19, 2022 DATE H&P PERFORMED: 04/11/22 PREOP DIAGNOSIS: abnormal uterine bleeding, iron defiency anemia PLANNED PROCEDURE: Operation Date: 04/19/22 07:00 Proposed Procedures p Laparoscopic Assist Vaginal Hysterectomy 45774/N81.4(Not Applicable) - Lisa Tristan MD s Laparoscopic Salpingectomy(Bilateral) - Lisa Tristan MD Related Problem List Diagnoses (1) Abnormal uterine bleeding (AUB): (2) Iron deficiency: (3) Anemia: (4) Uterine fibroid:
[2022-04-19] MEDS: HYDROmorphone 1 mg/mL INJ 1 mL 0.5 MG IVP (09:46)
--- NOTE | 2022-04-19 09:46 | P.OP_ITS ---
Operative Report Date of procedure: April 19, 2022 Pre-op diagnosis: Preop Diagnosis abnormal uterine bleeding, iron defiency anemia Post-op diagnosis: same Post-op diagnosis: same with fibroids Post-op findings: enlarged fibroid uterus Procedure done: LAVH, bilateral salpingectomy, cystoscopy Specimens removed/disposition: uterus, fallopian tubes to pathology Surgeon: Lisa Tristan Anesthesia: General Estimated blood loss (mL): 250 IV fluids (mL): 2,000 Urine output (mL): 450 Complications: none Findings: 10 week sized uterus, multiple fibroids, normal appearing tubes and ovaries Condition: stable Disposition: PACU Procedure: The patient was taken to the operating room where general anesthesia was administered and found to be adequate. She was prepped and draped in the normal sterile fashion in the dorsal lithotomy position in Bart stirrups. A Vasquez catheter was placed. A weighted speculum was placed into the vagina and the anterior lip of the cervix was grasped with a single tooth tenaculum. The Zumi uterine manipulator was placed. The weighted speculum was removed. The gloves were changed and attention was turned to the abdomen. A 5 mm LUQ incision was made at Otero's point. Using a 5 mm port with the camera, the port was placed into the abdomen. The abdomen was insufflated. Two low, lateral 5 mm ports were placed on the left and right under direct visualization from the camera. The right tube was grasped and elevated. Using the laparoscopic cautery, the mesosalpinx was divided between the ovary and tube. The tube was removed. This was performed the same way on the left. The uteroovarian ligaments as well as the round ligaments were ligated. Attention was then turned to the vaginal portion of the procedure. The weighted speculum was placed into the vagina. The zumi manipulator was removed. The single tooth tenaculum was removed and replaced with the damien's tenaculum. 8 mL of dilute Pitressin was injected at the vesicovaginal junction. A circumferential incision was made at the vesicovaginal junction and the vaginal mucosa reflected cephalad. The posterior peritoneum was entered sharply with the Metzenbaum scissors and the long weighted speculum replaced. Using the Michael clamps the uterosacral ligaments were clamped cut and suture-ligated. The anterior peritoneum was entered sharply with the metzenbaum scissors. Then sequentially the uterine arteries and cardinal ligaments were clamped cut and suture-ligated. A single-tooth tenaculum was used to deliver the uterus. The remaining segement of the utero-ovarian ligaments were clamped cut and suture- ligated bilaterally and the specimen was removed. There was good hemostasis with moderate bleeding from the posterior cuff. The peritoneum was closed with a pursestring using 2-0 Vicryl. The vaginal cuff was closed with 0 Vicryl in a running locked pattern incorporating the uterosacral ligaments into the lateral aspects of the vaginal cuff. The Vasquez catheter was removed and the cystoscope advanced into the bladder. The patient was given pyridium and bilateral spill was noted. There were no injuries or deficits noted in the bladder. The cystoscope was removed and the Vasquez was replaced. Vaginal packing was placed for good hemostasis. The gloves and gowns were changed and attention was turned to the abdomen. The ports were closed with 2-0 monocryl with skin glue. The patient tolerated the procedure well. Sponge lap and needle counts were correct x3. She was taken to the recovery room in stable condition.
--- NOTE | 2022-04-19 10:09 | SUR.PHASEI ---
0942 PT TO PACU 4 AWAKE , ID BRACELT TO RT WRIST , PT ID'D WITH 2 IDENTIFIERS.ALERT TALKATIVE, C/O OF PAIN TO ABDOMEN OF 9, DR SUBRAMANIAN AT BEDSIDE ORDERS RECIEVED TO GIVE DILAUDID FIRST FOR PAIN IN PACU. ABDOMEN FLAT SOFT WITH 3 SITES WITH SKIN GLUE D/I DALAL TO DD WITH ORANGE URINE IN SMALL AMT APPROX 100ML, IV TO LT FOREARM #20 PATENTWITH NS 50ML AT KVO RATE PER GRAVITY. 0946 PT AWAKE ALERT DENIES NAUSEA BUT PAIN MED GIVEN SLOWLY, PT DOZING OFF AND ON BUT PAIN IS UNCHANGED 1013 PT SLEEPS IF NOT DISTURBED , PT WHEN AWAKENED STATES PAIN IS UNCHANGED BUT QUICKLY BACK TO SLEEP FACE SCALE 3 SEE PAIN MED GIVEN . VSS, PT WITH GOOD RESP NOTED
--- NOTE | 2022-04-19 10:31 | SUR.PHASEI ---
1020 PT AWAKE ALERT , DENIES NAUSEA, PT STATES PAIN IS (BETTER) FACE SCALE 3 , REPORT CALLED TO OB RN ALMAZ, PT CASPER CALLED AND UPDATED , HE WILL MEET PT IN OB 11. PT TO OB 11 PER CART WITH RN. PT GLASSES , PHONE AN BELONGINGS WITH PT.
[2022-04-19] MEDS: dextrose 5%-lactated ringers 1,000 ML 125 ML IV ×2 (11:02→19:27)
[2022-04-19] MEDS: ondansetron 2 mg/ML SDV 2 mL 4 MG IVP ×3 (11:02→21:19)
[2022-04-19] MEDS: HYDROcodone-acetaminophen 5-325 mg Tablet PO ×3 (11:02→21:19)
--- NOTE | 2022-04-19 15:22 | ANE.PACU2 ---
Inpatient post-anesthesia follow up: Airway intact: Yes Vital signs: Temperature 98.6 F Pulse Rate 81 Respiratory Rate 14 Blood Pressure 109/61 Pulse Oximetry 98 Oxygen Delivery Me thod Room Air Oxygen Flow Rate 8 Fraction of Inspir ed Oxygen Hydration adequate: Yes Nausea and vomiting: No Pain level: 2 Mental status: Baseline
[2022-04-20] MEDS: ketorolac 30 mg/mL INJ IVP ×2 (01:37→07:19)
[2022-04-20 04:03] VITALS: BP 95/53; PULSE 96; RESP 14
[2022-04-20] MEDS: dextrose 5%-lactated ringers 1,000 ML 125 ML IV (04:07)
[2022-04-20] MEDS: HYDROcodone-acetaminophen 5-325 mg Tablet PO (05:24)
[2022-04-20 05:39] LABS: Hematocrit 33.3 % (37.0-47.0); Hemoglobin 10.5 g/dL (11.5-15.3); Mean Corpuscular HGB Conc 31.5 g/dL (30.0-36.0); Mean Corpuscular Hemoglobin 26.8 pg (28.0-34.0); Mean Corpuscular Volume 84.9 fl (81-99); Platelet Count 180 10^3/cmm (130-400); Red Blood Count 3.92 10^6/uL (4.1-5.3); White Blood Count 9.7 10^3/uL (4.0-10.0)
[2022-04-20 05:50] LABS: Anion Gap 10.7 (5-19); Blood Urea Nitrogen 4 mg/dL (6-20); Carbon Dioxide 23 mmol/L (22-29); Chloride 107 mmol/L (98-107); Glomerular Filtration Rate 142.1 mL/min (90-130); Glucose 114 mg/dL (65-115); Osmolality Calculated 282 mOsm/kg (285-295); Potassium 3.7 mmol/L (3.5-5.1); Sodium 137 mmol/L (136-145)
--- NOTE | 2022-04-20 08:58 | PM.DCS ---
Discharge Providers Date of Admission: 04/19/22 09:39 Date of Discharge: April 20, 2022 Attending Provider at Admission: Lisa Tristan MD Attending Provider at Discharge: Lisa Tristan MD Primary Care Provider: Dash Velazquez MD Diagnoses at Discharge Discharge Diagnosis (1) Abnormal uterine bleeding (AUB): Status: Acute (2) Iron deficiency: Status: Acute (3) Anemia: Status: Acute (4) Uterine fibroid: Status: Acute Reason for Visit Reason for Visit: N81.4 Hospital Course Hospital Course The patient was admitted for surgery. She did well postoperatively. Her escobar catheter was removed. Her vaginal packing was removed and it had scant blood on it. She was ready for discharge. Physical Exam Narrative: The patient is doing well this morning. No concerns. Const: COMMON NORMALS: no acute distress, patient oriented x3, no limitations, healthy appearing, alert and well nourished GENERAL APPEARANCE: cooperative, comfortable, well kempt and well developed NUTRITIONAL APPEARANCE: thin ORIENTATION/CONSCIOUSNESS: Yes awake, Yes oriented to person, Yes oriented to place and Yes oriented to time Resp: COMMON NORMALS: normal respiratory effort EFFORT & INSPECTION: Yes able to speak in complete sentences GI: COMMON NORMALS: Soft to palpation and non-tender PALPATION: Yes Soft to palpation Extremity: COMMON NORMALS: no calf tenderness Neuro: COMMON NORMALS: patient oriented x3 SENSORIUM/ORIENTATION: Yes alert, Yes oriented to person, Yes oriented to place and Yes oriented to time Psych: APPEARANCE: Yes well kempt Urinary Catheter Management: Escobar: Cath Placed During This Visit: yes, but has since been removed by the nurse Reason for Continuing Indwelling Catheter: Decision to DC Catheter Urinary Catheter Date of Insertion: 04/19/22 Urinary Catheter Time of Insertion: 07:38 Date Urinary Catheter Removed: 04/20/22 Time Urinary Catheter Discontinued: 06:22 Discharge Data Studies Completed and Pending Pending at discharge Category Date Time Status ES surgery / GI images Routine Exams 04/19/22 06:45 Taken Urine Culture Routine Lab 04/19/22 06:12 Received Pathology: Surgical [PTH] Routine Pth 04/19/22 09:47 Received Laboratory Results WBC 9.7 10^3/uL (4.0-10.0) 04/20/22 05:20 RBC 3.92 10^6/uL (4.1-5.3) L 04/20/22 05:20 Hgb 10.5 g/dL (11.5-15.3) L 04/20/22 05:20 Hct 33.3 % (37.0-47.0) L 04/20/22 05:20 MCV 84.9 fl (81-99) 04/20/22 05:20 MCH 26.8 pg (28.0-34.0) L 04/20/22 05:20 MCHC 31.5 g/dL (30.0-36.0) 04/20/22 05:20 RDW Not Reportable 04/20/22 05:20 Plt Count 180 10^3/cmm (130-400) 04/20/22 05:20 MPV 10.0 fL (7.4-10.4) 04/20/22 05:20 Neut % (Auto) 49.8 % 04/19/22 06:18 Lymph % (Auto) 41.7 % 04/19/22 06:18 [place] % (Auto) 6.5 % 04/19/22 06:18 Eos % (Auto) 1.2 % 04/19/22 06:18 Baso % (Auto) 0.5 % 04/19/22 06:18 Neut # (Auto) 3.77 10^3/uL (1.8-7.7) 04/19/22 06:18 Lymph # (Auto) 3.2 10^3/uL (0.8-4.8) 04/19/22 06:18 [place] # (Auto) 0.5 10^3/uL (0.2-0.9) 04/19/22 06:18 Eos # (Auto) 0.1 10^3/uL (0.0-0.8) 04/19/22 06:18 Baso # (Auto) 0.0 10^3/uL (0.0-0.1) 04/19/22 06:18 Nucleated RBC % (auto) 0 % 04/19/22 06:18 Nucleated RBCs # 0.0 /100WBC 04/19/22 06:18 Pathologist Review No 04/19/22 06:18 Anisocytosis 2+ H 04/19/22 06:18 Microcytosis 1+ H 04/19/22 06:18 Macrocytosis 3+ H 04/19/22 06:18 Ovalocytes 1+ H 04/19/22 06:18 Sodium 137 mmol/L (136-145) 04/20/22 05:20 Potassium 3.7 mmol/L (3.5-5.1) 04/20/22 05:20 Chloride 107 mmol/L (98-107) 04/20/22 05:20 Carbon Dioxide 23 mmol/L (22-29) 04/20/22 05:20 Anion Gap 10.7 (5-19) 04/20/22 05:20 BUN 4 mg/dL (6-20) L 04/20/22 05:20 Creatinine 0.5 mg/dL (0.5-0.9) 04/20/22 05:20 GFR Calculation 142.1 mL/min (90-130) H 04/20/22 05:20 Glucose 114 mg/dL (65-115) 04/20/22 05:20 Calculated Osmolality 282 mOsm/kg (285-295) L 04/20/22 05:20 Calcium 8.0 mg/dL (8.5-10.5) L 04/20/22 05:20 Urine HCG, Qual Negative (Negative) 04/19/22 06:12 Blood Type A Positive 04/19/22 06:18 Rho(D) Type Positive 04/19/22 06:18 Antibody Screen Negative 04/19/22 06:18 Vitals Last Vital Signs Temp 97.9 F 04/19/22 17:20 Pulse 96 04/20/22 04:03 Resp 14 04/20/22 04:03 BP 95/53 04/20/22 04:03 Pulse Ox 97 04/19/22 17:20 Discharge Plan Discharge Patient Disposition: Home Condition: Stable Prescriptions: New docusate sodium 100 mg Capsule 100 mg PO BID Qty: 60 0RF ibuprofen 800 mg Tablet 800 mg PO Q8H Qty: 30 0RF hydrocodone-acetaminophen 5-325 mg Tablet 1 tab PO Q4H PRN (Reason: Moderate To Severe Pain) Qty: 30 0RF Continued Adult Multivitamin Gummies 200 mcg Tablet,Chewable 1 tab PO DAILY 0RF Discontinued acetaminophen 500 mg Tablet 1,000 mg PO Q6H PRN (Reason: Pain) 0RF Discharge Orders: Discharge Order (Routine); Ordered 04/20/22 Ordered By: Lisa Tristan Referrals: Lisa Trisatn MD [Physician] - 04/25/22 3:45 pm (1 week post-op: 04/25/22 @3:45. 6 week post-op: 05/26/22 @9:30. ) Patient Instructions: Salpingectomy (DC), Laparoscopic Hysterectomy (DC), OB Discharge Report, OB Food/Drug Interaction Guide, Opioid Safety Discharge Attestations Time Spent in Discharge Care*: less than 30 min Quality Metrics Clinical Quality Measures [ No reported AMI, CVA or VTE this stay] Coding Level of Care Code Acute Chg FW DC note Diagnoses Abnormal uterine bleeding (AUB) N93.9 Iron deficiency E61.1 Anemia D64.9 Uterine fibroid D25.9
[2022-04-20] MEDS: ibuprofen 800 mg tablet PO (09:03)
[2022-04-20] MEDS: docusate sodium 100 mg Capsule PO (09:03)
[2022-04-20] MEDS: phenazopyridine 100 mg Tablet 200 MG PO (09:04)
[2022-04-20 10:00] VITALS: BP 107/62; PULSE 77; RESP 16; TEMP 36.5
== END 2022-04-20 09:50 | disposition home or self-care (01) ==
LOC: OBGYN 09:39
PROVIDERS: Admitting Provider Obstetrics & Gynecology; PCP Family Medicine; Visit Provider Obstetrics & Gynecology
PROC: 0UT9FZZ Resection of Uterus, Via Natural or Artificial Opening With Percutaneous Endoscopic Assistance (ICD-10-PCS; CPT 58552; principal; 2022-04-19 07:00)
PROC: (CPT 58661; 2022-04-19 07:00)
DX: N93.9 Abnormal uterine and vaginal bleeding, unspecified (principal); D50.9 Iron deficiency anemia, unspecified; D25.9 Leiomyoma of uterus, unspecified
CPT/HCPCS: 58552; 36415; 80048; 81025; 84703; 85025; 85027; 86850; 86900; 87086; 88307; G0378; J0330; J1100; J1170; J1200; J1885; J2370; J2405; J2704; J2710; J3010; J3490; J7030

== ENCOUNTER 2022-08-16 06:00 | Outpatient (RCR) | payer BC, MEDICAID, SELFPAY | END 2022-08-19 23:59 | disposition home or self-care (01) | LOC: SPT 06:00 | PROVIDERS: PCP Family Medicine; Visit Provider Family Medicine | DX: M48.061 Spinal stenosis, lumbar region without neurogenic claudication (principal); M54.50 Low back pain, unspecified; G89.29 Other chronic pain | CPT/HCPCS: 97110; 97162 ==

== ENCOUNTER 2022-12-05 08:27 | Outpatient (CLI) | payer MEDICAID, SELFPAY ==
--- NOTE | 2022-12-05 08:42 | MR_ITS ---
WS: [id number] MRI LUMBAR SPINE NONCONTRAST TECHNIQUE: Sagittal T1, T2 and STIR imaging. Axial T1 and T2 imaging. CLINICAL INFORMATION: SPINAL STENOSIS, LUMBAR/ CHRONIC LOW BACK PAIN COMPARISON: None. FINDINGS: Mild lumbar curve. Acute compression. No high-grade central canal stenosis. L1-L2: Normal. L2-L3: Normal. L3-L4: Mild annular bulging. Mild facet arthropathy. Spinal canal and foramen are patent. L4-L5: Mild annular bulging. Slight impingement traversing LEFT greater than RIGHT L5 nerve roots. Mi ld LEFT and no significant RIGHT foraminal narrowing. Mild facet arthropathy. Slight impingement radha ersing LEFT L5 nerve root in the subarticular recess. L5-S1: Mild annular bulging. Spinal canal and foramen are patent. Mild facet arthropathy. Visualized pelvic bony structures: Normal. Paravertebral soft tissues: Normal. MR/MR lumbar spine wo con* [id number] IMPRESSION: 1. Mild lumbar curve. No acute compression. No high-grade central canal stenos is. 2. Mild annular bulging with slight impingement traversing LEFT L5 nerve root in the subarticular recess. Recommend correlation for LEFT L5 nerve root sympto ms. Mild LEFT L4-L5 foraminal narrowing. 3. Mild facet arthropathy L3-L4 and L4-L5.
== END 2022-12-05 08:28 | disposition home or self-care (01) ==
LOC: RAD 08:32
PROVIDERS: PCP Family Medicine; Visit Provider Family Medicine
DX: M48.061 Spinal stenosis, lumbar region without neurogenic claudication (principal)
CPT/HCPCS: 72148

== ENCOUNTER → 2022-12-13 09:24 | Outpatient (BNVA) | payer MEDICAID, SELFPAY | PROVIDERS: PCP Family Medicine; Referring Provider Family Medicine; Visit Provider Physician Assistant | DX: M54.50 Low back pain, unspecified (principal) | CPT/HCPCS: 72110 ==

== ENCOUNTER 2024-06-27 03:52 | Emergency (ER) | payer MEDICAID, SELFPAY ==
[2024-06-27 04:14] VITALS: BP 115/78; PULSE 95; RESP 18; TEMP 36.6; O2SAT 98; BMI 18.5
--- NOTE | 2024-06-27 04:20 | XRR_ITS ---
PROCEDURE INFORMATION: Exam: XR Lumbosacral Spine Exam date and time: 06/27/2024 5:08 AM Age: 33 years old Clinical indication: Pain; Lumbago; Additional info: Low back pain TECHNIQUE: Imaging protocol: Radiologic exam of the lumbosacral spine. Views: 2 or 3 views. COMPARISON: CR XR lumbar spine min 4V [id number] 12/13/2022 9:27 AM FINDINGS: Bones/joints: The vertebral body heights and alignment are maintained. There is partial straightening of lumbar lordosis. There is mild multilevel spondylosis. Soft tissues: Unremarkable. XR/XR lumbar spine 2-3V* [id number] IMPRESSION: Mild degenerative changes. Otherwise no evidence of acute process.
--- NOTE | 2024-06-27 04:24 | W.ED.BACK ---
HPI - Back Pain/Injury General: Chief Complaint: Back Pain/Injury Stated Complaint: Back and Leg pain Time Seen by Provider: 06/27/24 03:54 History of Present Illness: Patient presents to the ER with complaints of low back pain that radiates down both of her legs. Patient also complains of overall body aches and intermittent fever and chills. Patient states she had a back workup before she where she had an MRI and seeing a back doctor he is going referred to the pain clinic but she has not seen anyone for it yet. Patient does not have any known recent injury or exacerbating factor of her pain. Review of Systems General: Reports: 10 or more systems reviewed and unremarkable except in HPI and below PFSH ED PFSH: Medical History Anxiety Microcytic hypochromic anemia Emesis No pertinent past medical history neghx: htn, dm, thyriod, dvt/pe PCP: Dr. Velazquez Gastritis Abdominal pain Biliary dyskinesia Chronic diarrhea Surgical History H/O: hysterectomy H/O removal of cyst right hand Hx of tubal ligation History of laparoscopic cholecystectomy (~02/2021) Family History Grandfather Diabetes maternal Grandmother Hypercholesteremia maternal Hypertension maternal Denies family history of Colon cancer Ovarian cancer Heart disease Breast cancer Uterine cancer Thyroid disease Stroke Social History Substance/Drug Use: never Do you think of yourself as: Straight/Heterosexual Physical Exam Const: COMMON NORMALS: no acute distress, average body habitus, patient oriented x3, no limitations, healthy appearing, alert and well nourished Neck/C-Spine: COMMON NORMALS: no JVD Chest: COMMONS NORMALS: normal inspection of the chest and normal palpation of entire chest wall Resp: COMMON NORMALS: normal respiratory effort, No retractions, No use of accessory muscles and clear to auscultation bilaterally AUSCULTATION: clear to auscultation bilaterally Cardio: COMMON NORMALS: no JVD, regular rate, regular rhythm, S1 normal heart sound present, S2 normal heart sound present, No gallops present (Cardio), No clicks present (Cardio), No murmurs present (Cardio) and No rub (Cardio) RATE: regular rate RHYTHM: regular rhythm HEART SOUNDS: S1 normal heart sound present and S2 normal heart sound present GI: COMMON NORMALS: Normal to inspection, nondistended, normoactive bowel sounds present, Soft to palpation, non-tender, No hepatosplenomegaly present and no masses PALPATION: Yes Soft to palpation and Yes No hepatosplenomegaly present Back/Pelvis: OTHER: Tender to palpate over lumbar region, no obvious deformity crepitus or step-off noted. Neuro: COMMON NORMALS: patient oriented x3 SENSORIUM/ORIENTATION: Yes alert Course Vital Signs: Vital signs: Vital Signs Temperature 97.9 F 06/27/24 04:14 Pulse Rate 95 06/27/24 04:14 Respiratory Rate 18 06/27/24 04:14 Blood Pressure 115/78 06/27/24 04:48 Pulse Oximetry 98 06/27/24 04:48 Oxygen Delivery Me thod Room Air 06/27/24 04:48 MDM - Back Pain/Injury Medical Decision Making Patient lab work to include CBC CMP urinalysis, CBC and CMP was unremarkable, urinalysis was a contaminated specimen with greater than 100 epithelial cells but did show signs of, being concentrated. Patient was given 60 mg Toradol, 60 mg Norflex, 10 mg Decadron, x-ray was preliminarily read by myself is negative, patient will be discharged home. Differential Diagnosis Likely lumbar radiculopathy and strain of lumbar region Medical Records I reviewed the patient's medical records. Labs I reviewed the patient's lab results. 06/27/24 04:51 06/27/24 04:51 Laboratory Results WBC 7.43 10^3/uL (3.29-11.43) 06/27/24 04:51 RBC 5.09 10^6/uL (3.85-5.65) 06/27/24 04:51 Hgb 16.10 g/dL (11.27-16.99) 06/27/24 04:51 Hct 46.6 % (36-47) 06/27/24 04:51 MCV 91.6 fl (85-98) 06/27/24 04:51 MCH 31.6 pg (27-33) 06/27/24 04:51 MCHC 34.5 g/dL (30-55) 06/27/24 04:51 RDW 11.9 % (12.1-15.1) L 06/27/24 04:51 Plt Count 175 10^3/cmm (157-399) 06/27/24 04:51 MPV 10.5 fL (7.4-10.4) H 06/27/24 04:51 Neut % (Auto) 90.0 % 06/27/24 04:51 Lymph % (Auto) 2.8 % 06/27/24 04:51 [place] % (Auto) 6.5 % 06/27/24 04:51 Eos % (Auto) 0.0 % 06/27/24 04:51 Baso % (Auto) 0.3 % 06/27/24 04:51 Neut # (Auto) 6.69 10^3/uL (1.8-7.7) 06/27/24 04:51 Lymph # (Auto) 0.2 10^3/uL (0.8-4.8) L 06/27/24 04:51 [place] # (Auto) 0.5 10^3/uL (0.2-0.9) 06/27/24 04:51 Eos # (Auto) 0.0 10^3/uL (0.0-0.8) 06/27/24 04:51 Baso # (Auto) 0.0 10^3/uL (0.0-0.1) 06/27/24 04:51 Nucleated RBC % (auto) 0 % 06/27/24 04:51 Nucleated RBCs # 0.0 /100WBC 06/27/24 04:51 Sodium 133 mmol/L (136-145) L 06/27/24 04:51 Potassium 3.8 mmol/L (3.5-5.1) 06/27/24 04:51 Chloride 102 mmol/L (98-107) 06/27/24 04:51 Carbon Dioxide 15 mmol/L (22-29) L 06/27/24 04:51 Anion Gap 19.8 (5-19) H 06/27/24 04:51 BUN 10 mg/dL (6-20) 06/27/24 04:51 Creatinine 0.6 mg/dL (0.5-0.9) 06/27/24 04:51 GFR Calculation 113.8 mL/min (90-130) 06/27/24 04:51 Glucose 106 mg/dL (65-115) 06/27/24 04:51 Calculated Osmolality 275 mOsm/kg (285-295) L 06/27/24 04:51 Calcium 9.2 mg/dL (8.5-10.5) 06/27/24 04:51 Total Bilirubin 0.4 mg/dL (0.15-1.2) 06/27/24 04:51 AST 15 U/L (0-32) 06/27/24 04:51 ALT 17 U/L (0-33) 06/27/24 04:51 Alkaline Phosphatase 68 U/L (35-105) 06/27/24 04:51 Total Protein 7.4 g/dL (6.6-8.7) 06/27/24 04:51 Albumin 4.4 g/dL (3.5-5.2) 06/27/24 04:51 Globulin 3.0 g/dL (1.3-4.6) 06/27/24 04:51 Urine Color Dark yellow (Yellow) A 06/27/24 04:51 Urine Appearance Turbid (CLEAR) A 06/27/24 04:51 Urine pH 6.0 (5-7) 06/27/24 04:51 Ur Specific [place] 1.037 (1.005-1.030) H 06/27/24 04:51 Urine Protein 1+ (Negative) A 06/27/24 04:51 Urine Glucose (UA) Negative (Normal) 06/27/24 04:51 Urine Ketones 3+ (Negative) H 06/27/24 04:51 Urine Blood Non-haemolysed trace (Negative) 06/27/24 04:51 Urine Nitrate Negative (Negative) 06/27/24 04:51 Urine Bilirubin 2+ (Negative) H 06/27/24 04:51 Urine Urobilinogen 1.0 mg/dL (Negative) 06/27/24 04:51 Ur Leukocyte Esterase Negative (Negative) 06/27/24 04:51 Urine RBC 6-10 /hpf (0-2) 06/27/24 04:51 Urine WBC 6-10 /hpf (0-5) 06/27/24 04:51 Ur Squamous Epith Cells >100 /hpf (0-5) H 06/27/24 04:51 Amorphous Sediment Not Reportable 06/27/24 04:51 Urine Bacteria 4+ /hpf (NONE) H 06/27/24 04:51 Hyaline Casts 2.05 /lpf 06/27/24 04:51 All radiology interpretation(s) finalized by discharge Discharge Plan Discharge Patient Disposition: Home Clinical Impression: Lumbar radiculopathy Strain of lumbar region Qualifiers: Encounter type: initial encounter Qualified Code(s): S39.012A - Strain of muscle, fascia and tendon of lower back, initial encounter Condition: Stable Prescriptions: New meloxicam 7.5 mg tablet 7.5 mg PO .Twice daily Qty: 14 0RF prednisone 50 mg tablet 50 mg PO DAILY Qty: 5 0RF cyclobenzaprine 5 mg tablet 5 mg PO TID PRN (Reason: muscle spasm) Qty: 14 0RF No Action ibuprofen 800 mg tablet 800 mg PO Q8H PRN acetaminophen [Tylenol] 325 mg capsule 325 mg PO QID PRN Adult Multivitamin Gummies 200 mcg Tablet,Chewable 1 tab PO DAILY Discharge Orders: Discharge ED (Routine); Ordered 06/27/24 Ordered By: Phill Stubbs Referrals: Dash Velazquez MD [Primary Care Provider] - 1 week Patient Instructions: Lumbar Radiculopathy (ED), Lower Back Exercises (ED), Pain Management Activity Restrictions/Additional Instructions: Your lab work in the ER that included blood work and urinalysis did not show any significant abnormalities, your urine possibly was contaminated. Please take your medicine as directed. 3 medicines were sent to your pharmacy. Please follow-up with your family practice physician within the next 7 days for further evaluation and treatment. Thank you for choosing [facility] for your healthcare needs today. Please realize that you were seen in the emergency department and that we are providing you with an emergency medical screening exam and this may not be a complete and all exclusive of all testing and/or medical workup we may need to determine your element or severity of your illness. It is very important that you follow-up as instructed with your primary care provider or specialist for the additional evaluation and to discuss your medical treatment plan. You may return to the emergency department should you have concerns or if your condition changes or worsens in any way. Coding Level of Care Code ED Aircraft Engine Mechanic Overhaul for David Gu
[2024-06-27 04:48] VITALS: BP 115/78; O2SAT 98
[2024-06-27] MEDS: ketorolac 60 mg/2 mL INJ IM (04:54)
[2024-06-27 04:55] LABS: Basophils % 0.3 %; Hematocrit 46.6 % (36-47); Lymphocytes # 0.2 10^3/uL (0.8-4.8); Lymphocytes % 2.8 %; Mean Corpuscular HGB Conc 34.5 g/dL (30-55); Mean Corpuscular Hemoglobin 31.6 pg (27-33); Mean Corpuscular Volume 91.6 fl (85-98); Mean Platelet Volume 10.5 fL (7.4-10.4); Monocytes # 0.5 10^3/uL (0.2-0.9); Monocytes % 6.5 %; Neutrophils # 6.69 10^3/uL (1.8-7.7); Nucleated Red Blood Cells % 0 %; Platelet Count 175 10^3/cmm (157-399); Red Blood Count 5.09 10^6/uL (3.85-5.65); Red Cell Distribution Width 11.9 % (12.1-15.1); White Blood Count 7.43 10^3/uL (3.29-11.43)
[2024-06-27 04:58] LABS: Charge for UA Resulting for Rev
[2024-06-27 05:01] LABS: Bilirubin Urine 2+ (Negative); Blood Urine Non-haemolysed trace (Negative); Glucose Urine UA Negative (Normal); Ketones Urine 3+ (Negative); Leukocyte Esterase Urine Negative (Negative); Nitrate Urine Negative (Negative); Protein Urine 1+ (Negative); Urine Appearance Turbid (CLEAR); Urine Color Dark Yellow (Yellow)
[2024-06-27 05:06] LABS: Bacteria Urine 4+ /hpf; Hyaline Casts Urine 2.05 /lpf; Squamous Epithelial Cell Urine >100 /hpf (0-5)
[2024-06-27 05:12] LABS: Alanine Aminotransferase 17 U/L (0-33); Albumin Level 4.4 g/dL (3.5-5.2); Alkaline Phosphatase 68 U/L (35-105); Aspartate Amino Transferase 15 U/L (0-32); Blood Urea Nitrogen 10 mg/dL (6-20); Calcium 9.2 mg/dL (8.5-10.5); Carbon Dioxide 15 mmol/L (22-29); Chloride 102 mmol/L (98-107); Creatinine Clr Calc Pharmacy 95.9867; Glomerular Filtration Rate 113.8 mL/min (90-130); Glucose 106 mg/dL (65-115); Osmolality Calculated 275 mOsm/kg (285-295); Sodium 133 mmol/L (136-145); Total Bilirubin 0.4 mg/dL (0.15-1.2); Total Protein 7.4 g/dL (6.6-8.7)
[2024-06-27 05:13] LABS: Anion Gap 19.8 (5-19); Potassium 3.8 mmol/L (3.5-5.1)
[2024-06-27 05:17] LABS: Add Urine Culture? No; Specific Gravity, Urine 1.037 (1.005-1.030)
[2024-06-27] MEDS: dexamethasone 10 mg/mL INJ IM (05:45)
[2024-06-27] MEDS: orphenadrine 30 mg/mL Inj 2 mL 60 MG IM (05:45)
[2024-06-27 05:46] VITALS: BP 108/69; PULSE 91; RESP 16; O2SAT 98
== END 2024-06-27 05:47 | disposition home or self-care (01) ==
PROVIDERS: Emergency Provider Emergency Medicine; PCP Family Medicine
DX: S39.012A Strain of muscle, fascia and tendon of lower back, initial encounter (principal); M54.16 Radiculopathy, lumbar region; X58.XXXA Exposure to other specified factors, initial encounter
CPT/HCPCS: 72100; 80053; 81003; 81015; 85025; 96372; 99284; J1100; J1885; J2360

== ENCOUNTER 2025-11-14 05:40 | Emergency (ER) | payer MEDICAID, SELFPAY ==
[2025-11-14 06:07] VITALS: BP 111/77; PULSE 72; RESP 16; TEMP 36.8; O2SAT 98; BMI 20.1
--- NOTE | 2025-11-14 08:10 | W.ED.HA ---
HPI - Headache General: Chief Complaint: Headache Stated Complaint: n/v 24 hr + migraine right side body pain Time Seen by Provider: 11/14/25 08:04 Source: patient Mode of arrival: ambulatory Limitations: no limitations History of Present Illness: 35-year-old female states she has a history of migraines in the past. States she started have a headache yesterday morning that is gradually worsening. States she is typically able to take Tylenol for her headaches but she has had vomiting with a headache and is out of her meds. She has some photophobia and phonophobia she rates her pain a 7 out of 10 this feels like previous migraines denies abdominal pain denies any fevers Related Data Home Medications ?Medication ?Instructions ?Recorded ?Confirmed multivitamin with minerals-folic 1 tab PO DAILY 04/26/21 12/13/22 acid 200 mcg chewable tablet (Adult Multivitamin Gummies) acetaminophen 325 mg capsule 325 mg PO QID PRN 05/26/22 12/13/22 (Tylenol) ibuprofen 800 mg tablet 800 mg PO Q8H PRN 05/26/22 12/13/22 Previous Rx's ?Medication ?Instructions ?Recorded cyclobenzaprine 5 mg tablet 5 mg PO TID PRN muscle spasm #14 06/27/24 tabs meloxicam 7.5 mg tablet 7.5 mg PO .Twice daily #14 tabs 06/27/24 prednisone 50 mg tablet 50 mg PO DAILY #5 tabs 06/27/24 Allergies Allergy/AdvReac Type Severity Reaction Status Date / Time Penicillins Allergy ALGY-Rash Verified 06/27/24 04:20 Review of Systems Neuro: Reports: headache(s) [facility] ED PFSH: Medical History Anxiety Microcytic hypochromic anemia Emesis No pertinent past medical history neghx: htn, dm, thyriod, dvt/pe PCP: Dr. Velazquez Gastritis Abdominal pain Biliary dyskinesia Chronic diarrhea Surgical History H/O: hysterectomy H/O removal of cyst right hand Hx of tubal ligation History of laparoscopic cholecystectomy (~02/2021) Family History Grandfather Diabetes maternal Grandmother Hypercholesteremia maternal Hypertension maternal Denies family history of Colon cancer Ovarian cancer Heart disease Breast cancer Uterine cancer Thyroid disease Stroke Social History Substance/Drug Use: never Do you think of yourself as: Straight/Heterosexual Physical Exam Const: COMMON NORMALS: no acute distress, patient oriented x3 and healthy appearing HENMT: COMMON NORMALS: normocephalic and atraumatic HEAD & SCALP: normocephalic and atraumatic Eye: COMMON NORMALS: Equal, round and reactive pupils present and EOMs intact bilaterally PUPIL: Yes Equal, round and reactive pupils present Neck/C-Spine: COMMON NORMALS: full ROM and supple Chest: COMMONS NORMALS: normal inspection of the chest Resp: COMMON NORMALS: normal respiratory effort, No retractions, No use of accessory muscles and clear to auscultation bilaterally AUSCULTATION: clear to auscultation bilaterally Cardio: COMMON NORMALS: regular rate, regular rhythm and No murmurs present (Cardio) RATE: regular rate RHYTHM: regular rhythm Extremity: COMMON NORMALS: normal to inspection and full ROM Neuro: COMMON NORMALS: patient oriented x3, moves all extremities and no focal motor deficits Psych: COMMON NORMALS: mental status grossly normal, Normal thought process present and cooperative THOUGHT PROCESS: Normal thought process present Skin: COMMON NORMALS: no rashes or lesions noted and no wounds GENERAL SKIN EXAM: no rashes or lesions noted Course Vital Signs: Vital signs: Vital Signs Temperature 98.2 F 11/14/25 06:07 Pulse Rate 72 11/14/25 06:07 Respiratory Rate 16 11/14/25 06:07 Blood Pressure 111/77 11/14/25 06:07 Pulse Oximetry 98 11/14/25 06:07 Oxygen Delivery Me thod Room Air 11/14/25 06:07 MDM - Headache Medical Decision Making 35-year-old female presenting here with a headache some going on for 2 days differential includes migraine, meningitis, subarachnoid hemorrhage. Patient has no thunderclap headache not the worst headache of her life she has no fever she has no signs of meningitis or subarachnoid hemorrhage here. History of migraines and her symptoms here are consistent with her typical migraines her headache here was resolved with Reglan, Benadryl, Toradol. She is well-appearing and stable for discharge she is to follow-up with PCP and return if worsening she understands agrees to plan Medical Records I reviewed the patient's medical records. Lab Data I reviewed the patient's lab results. 11/14/25 08:09 11/14/25 08:09 Laboratory Results WBC 5.60 10^3/uL (3.29-11.43) 11/14/25 08:09 RBC 5.22 10^6/uL (3.85-5.65) 11/14/25 08:09 Hgb 16.80 g/dL (11.27-16.99) 11/14/25 08:09 Hct 47.8 % (36-47) H 11/14/25 08:09 MCV 91.6 fl (85-98) 11/14/25 08:09 MCH 32.2 pg (27-33) 11/14/25 08:09 MCHC 35.1 g/dL (30-55) 11/14/25 08:09 RDW 12.1 % (12.1-15.1) 11/14/25 08:09 Plt Count 197 10^3/cmm (157-399) 11/14/25 08:09 MPV 10.4 fL (7.4-10.4) 11/14/25 08:09 Neut % (Auto) 80.3 % 11/14/25 08:09 Lymph % (Auto) 11.8 % 11/14/25 08:09 [place] % (Auto) 7.0 % 11/14/25 08:09 Eos % (Auto) 0.0 % 11/14/25 08:09 Baso % (Auto) 0.5 % 11/14/25 08:09 Neut # (Auto) 4.50 10^3/uL (1.8-7.7) 11/14/25 08:09 Lymph # (Auto) 0.7 10^3/uL (0.8-4.8) L 11/14/25 08:09 [place] # (Auto) 0.4 10^3/uL (0.2-0.9) 11/14/25 08:09 Eos # (Auto) 0.0 10^3/uL (0.0-0.8) 11/14/25 08:09 Baso # (Auto) 0.0 10^3/uL (0.0-0.1) 11/14/25 08:09 Nucleated RBC % (auto) 0 % 11/14/25 08:09 Nucleated RBCs # 0.0 /100WBC 11/14/25 08:09 Sodium 138 mmol/L (136-145) 11/14/25 08:09 Potassium 3.7 mmol/L (3.5-5.1) 11/14/25 08:09 Chloride 101 mmol/L (98-107) 11/14/25 08:09 Carbon Dioxide 22 mmol/L (22-29) 11/14/25 08:09 Anion Gap 18.7 (5-19) 11/14/25 08:09 BUN 7 mg/dL (6-20) 11/14/25 08:09 Creatinine 0.6 mg/dL (0.5-0.9) 11/14/25 08:09 GFR Calculation 112.5 mL/min (90-130) 11/14/25 08:09 Glucose 89 mg/dL (65-115) 11/14/25 08:09 Calculated Osmolality 283 mOsm/kg (285-295) L 11/14/25 08:09 Calcium 9.6 mg/dL (8.5-10.5) 11/14/25 08:09 Total Bilirubin 0.5 mg/dL (0.15-1.2) 11/14/25 08:09 AST 32 U/L (0-32) 11/14/25 08:09 ALT 50 U/L (0-33) H 11/14/25 08:09 Alkaline Phosphatase 86 U/L (35-105) 11/14/25 08:09 Total Protein 8.2 g/dL (6.6-8.7) 11/14/25 08:09 Albumin 4.8 g/dL (3.5-5.2) 11/14/25 08:09 Globulin 3.4 g/dL (1.3-4.6) 11/14/25 08:09 Lipase 19 U/L (13-60) 11/14/25 08:09 HCG, Qual Negative (Negative) 11/14/25 08:09 Urine Color Dark yellow (Yellow) A 11/14/25 08:30 Urine Appearance Cloudy (CLEAR) A 11/14/25 08:30 Urine pH 6.0 (5-7) 11/14/25 08:30 Ur Specific [place] 1.044 (1.005-1.030) H 11/14/25 08:30 Urine Protein 2+ (Negative) A 11/14/25 08:30 Urine Glucose (UA) Negative (Normal) 11/14/25 08:30 Urine Ketones 3+ (Negative) H 11/14/25 08:30 Urine Blood Negative (Negative) 11/14/25 08:30 Urine Nitrate Negative (Negative) 11/14/25 08:30 Urine Bilirubin 1+ (Negative) H 11/14/25 08:30 Urine Urobilinogen 1.0 mg/dL (Negative) 11/14/25 08:30 Ur Leukocyte Esterase Negative (Negative) 11/14/25 08:30 Urine RBC 6-10 /hpf (0-2) 11/14/25 08:30 Urine WBC 0-5 /hpf (0-5) 11/14/25 08:30 Ur Squamous Epith Cells 11-20 /hpf (0-5) H 11/14/25 08:30 Amorphous Sediment Not Reportable 11/14/25 08:30 Urine Bacteria 1+ /hpf (NONE) H 11/14/25 08:30 Hyaline Casts 6.61 /lpf 11/14/25 08:30 No radiology studies performed this visit Discharge Plan Discharge Patient Disposition: Home Clinical Impression: Headache Condition: Stable Prescriptions: No Action ibuprofen 800 mg tablet 800 mg PO Q8H PRN acetaminophen [Tylenol] 325 mg capsule 325 mg PO QID PRN Adult Multivitamin Gummies 200 mcg Tablet,Chewable 1 tab PO DAILY meloxicam 7.5 mg tablet 7.5 mg PO .Twice daily Qty: 14 0RF prednisone 50 mg tablet 50 mg PO DAILY Qty: 5 0RF cyclobenzaprine 5 mg tablet 5 mg PO TID PRN (Reason: muscle spasm) Qty: 14 0RF Discharge Orders: Discharge ED (Routine); Ordered 11/14/25 Ordered By: Mk Maynard Referrals: Dash Velazquez MD [Primary Care Provider, Family Practice] - 4-7 days Discharge Diet: Advance as tolerated Discharge Activity: Resume usual activity Patient Instructions: Migraine Headache (ED) Print Language: Turkmen Coding Level of Care Code ED Jointer Operator for Chg Brittanie
[2025-11-14 08:32] LABS: Hematocrit 47.8 % (36-47); Hemoglobin 16.80 g/dL (11.27-16.99); Mean Corpuscular HGB Conc 35.1 g/dL (30-55); Mean Corpuscular Hemoglobin 32.2 pg (27-33); Mean Corpuscular Volume 91.6 fl (85-98); Nucleated Red Blood Cells % 0 %; Platelet Count 197 10^3/cmm (157-399); Red Blood Count 5.22 10^6/uL (3.85-5.65); White Blood Count 5.60 10^3/uL (3.29-11.43)
[2025-11-14 08:39] LABS: Glucose Urine UA Negative (Normal); Nitrate Urine Negative (Negative)
[2025-11-14 08:44] LABS: Add Urine Microscopic? YES
[2025-11-14 08:47] LABS: HCG, Serum Qual Negative (Negative)
[2025-11-14 08:50] LABS: Specific Gravity, Urine 1.044 (1.005-1.030)
[2025-11-14 08:53] LABS: Alanine Aminotransferase 50 U/L (0-33); Albumin Level 4.8 g/dL (3.5-5.2); Alkaline Phosphatase 86 U/L (35-105); Anion Gap 18.7 (5-19); Aspartate Amino Transferase 32 U/L (0-32); Blood Urea Nitrogen 7 mg/dL (6-20); Calcium 9.6 mg/dL (8.5-10.5); Carbon Dioxide 22 mmol/L (22-29); Chloride 101 mmol/L (98-107); Globulin 3.4 g/dL (1.3-4.6); Glucose 89 mg/dL (65-115); Lipase 19 U/L (13-60); Osmolality Calculated 283 mOsm/kg (285-295); Potassium 3.7 mmol/L (3.5-5.1); Sodium 138 mmol/L (136-145); Total Protein 8.2 g/dL (6.6-8.7)
[2025-11-14] MEDS: diphenhydrAMINE 50 mg/mL SDV 1mL IVP (09:02)
[2025-11-14] MEDS: metoclopramide 5 mg/mL SDV 2 mL 10 MG IVP (09:06)
== END 2025-11-14 10:27 | disposition home or self-care (01) ==
PROVIDERS: Emergency Provider Emergency Medicine; PCP Family Medicine
DX: R51.9 Headache, unspecified (principal)
CPT/HCPCS: 36415; 80053; 81001; 83690; 84703; 85025; 96374; 96375; 99284; J1200; J1885; J2765; J7030